=== PATIENT | female | born 1970 | race Caucasian/White ===

== ENCOUNTER 2022-09-14 17:51 | Emergency (ER) | payer MEDICARE, MEDICAID ==
[~2022-09-14 17:51] MED LIST: CEPH250S PO; LORA10TA7 PO
[2022-09-14 18:50] LABS: BASOPHILS % (AUTO) 0 % (0-10); EOSINOPHILS # (AUTO) 0.1 10^3/uL (0.0-0.3); EOSINOPHILS % (AUTO) 1 % (0-10); HEMATOCRIT 42 % (35-52); HEMOGLOBIN 13.9 g/dL (11.5-16.0); LYMPHOCYTES # (AUTO) 2.1 10^3/uL (1.0-4.0); LYMPHOCYTES % (AUTO) 26 % (12-44); MEAN CORPUSCULAR HEMOGLOBIN 30 pg (25-34); MEAN CORPUSCULAR HGB CONC 33 g/dL (32-36); MEAN CORPUSCULAR VOLUME 91 fL (80-99); MONOCYTES # (AUTO) 0.7 10^3/uL (0.0-1.0); MONOCYTES % (AUTO) 9 % (0-12); NEUTROPHILS # (AUTO) 5.3 10^3/uL (1.8-7.8); NEUTROPHILS % (AUTO) 64 % (42-75); PLATELET COUNT 269 10^3/uL (130-400); WHITE BLOOD COUNT 8.3 10^3/uL (4.3-11.0)
--- NOTE | 2022-09-14 18:50 | ED General ---
General Chief Complaint: General Problems/Pain Stated Complaint: WEAKNESS Nursing Triage Note: PT BROUGHT IN BY [facility] FROM HOME. PT HAS BEEN LAYING ON THE FLOOR FOR 3 DAYS. MOM STATES PT IS NORMALLY UP WALKING AROUND AND EATING. STATES THEY HAVE NOT BEEN ABLE TO GET HER OFF THE FLOOR OR EAT. PT WAS SEEN BY NORMA DUNNE AT HOME AND WAS GIVEN 1L OF IV FLUIDS. Source of Information: Family (mother) Exam Limitations: Physical Impairments History of Present Illness Date Seen by Provider: Sep 14, 2022 Time Seen by Provider: 18:30 Initial Comments Patient is a 52-year-old female who presents to the emergency department by EMS from home with her mother. She has a history of anoxic brain injury at and is quite intellectually disabled, nonverbal. She is able to walk and get around independently and feed herself. She sleeps on the floor at home and mother states that since Sunday she has not gotten up off the floor and has not really eaten much at all. She had a little food on Sunday, nothing yesterday and about 36 ounces of water today with a little mashed potatoes and a banana. She has not gotten up to toilet or otherwise been ambulatory in 2-1/2 days. One of the nurse practitioners from [facility] went over to the house and gave her some IV fluids and this did not result in any improvement in her behavior/ability to get up and move around. Mom reports no recent sick contacts. Everyone is fully vaccinated at home. She has not had any cough or shortness of breath or URI symptoms that mom can find. She reports no wounds. She is cared for at home by her elderly parents who are both in their 80s. They were unable to get her up off the floor today. They report no falls or injuries that they are aware of. She is not on any maintenance medications for any chronic health issues. Timing/Duration: 2-3 Days Severity: Moderate Allergies and Home Medications Allergies Coded Allergies: No Known Drug Allergies (Unverified , 04/14/12) Patient Home Medication List Home Medication List Reviewed: Yes Cephalexin Monohydrate (Keflex Susp) 250 Mg/5 Ml Susp, 2 TSP PO TID Prescribed by: IRAIS GARZA on 04/14/121947 Loratadine (Loratadine) 10 Mg Tablet, 10 MG PO DAILY, (Reported) Entered as Reported by: KUNAL PEDRAZA on 12/19/10 0937 Review of Systems Review of Systems Constitutional: see HPI unobtainable from patient due to chronic nonverbal state Past Mqrnkzy-Ideyhl-Awkmms Hx Patient Social History Tobacco Use?: No Use of E-Cig and/or Vaping dev: No Substance use?: No Alcohol Use?: No Pt feels they are or have been: No Physical Exam Vital Signs Vital Signs - First Documented 09/14/22 17:51 Temp 35.6 Pulse 91 Resp 16 B/P (MAP) 134/91 (105) Pulse Ox 96 O2 Delivery Room Air Capillary Refill : Height, Weight, BMI Height: 5'3" Weight: 155lbs. oz. 70.070759uk; BMI Method:Stated General Appearance: No Apparent Distress, WD/WN, Other (frowning) Eyes: Bilateral Eye Normal Inspection, Bilateral Eye PERRL, Bilateral Eye EOMI HEENT: PERRL/EOMI, Other (slightly dry oral mucosa) Neck: Supple Respiratory: Lungs Clear, Normal Breath Sounds, No Accessory Muscle Use, No Respiratory Distress Cardiovascular: Regular Rate, Rhythm (90's), Normal Peripheral Pulses Gastrointestinal: Soft, Guarding (patient voluntarily guards a little with palpation of the abdomen; nondistended. normal BS; ) Extremity: Normal Capillary Refill, Normal Inspection, No Pedal Edema Neurologic/Psychiatric: Alert (eyes open,. frowning - appears to move all extremities equally; ), Normal Mood/Affect Skin: Normal Color, Warm/Dry, Other (a few old bruises to left inner uper thigh) Progress/Results/Core Measures Suspected Sepsis SIRS Temperature: Pulse: 91 Respiratory Rate: 16 Laboratory Tests 09/14/22 17:56: White Blood Count 8.3 Blood Pressure 134 /91 Mean: 105 Laboratory Tests 09/14/22 17:56: Creatinine 0.61, Platelet Count 269, Total Bilirubin 0.4 Results/Orders Lab Results Laboratory Tests Test 09/14/22 17:56 09/14/22 18:59 Range/Units White Blood Count 8.3 4.3-11.0 10^3/uL Red Blood Count 4.67 3.80-5.11 10^6/uL Hemoglobin 13.9 11.5-16.0 g/dL Hematocrit 42 35-52 % Mean Corpuscular Volume 91 80-99 fL Mean Corpuscular Hemoglobin 30 25-34 pg Mean Corpuscular Hemoglobin Concent 33 32-36 g/dL Red Cell Distribution Width 14.2 10.0-14.5 % Platelet Count 269 130-400 10^3/uL Mean Platelet Volume 12.0 9.0-12.2 fL Immature Granulocyte % (Auto) 0 % Neutrophils (%) (Auto) 64 42-75 % Lymphocytes (%) (Auto) 26 12-44 % Monocytes (%) (Auto) 9 0-12 % Eosinophils (%) (Auto) 1 0-10 % Basophils (%) (Auto) 0 0-10 % Neutrophils # (Auto) 5.3 1.8-7.8 10^3/uL Lymphocytes # (Auto) 2.1 1.0-4.0 10^3/uL Monocytes # (Auto) 0.7 0.0-1.0 10^3/uL Eosinophils # (Auto) 0.1 0.0-0.3 10^3/uL Basophils # (Auto) 0.0 0.0-0.1 10^3/uL Immature Granulocyte # (Auto) 0.0 0.0-0.1 10^3/uL Sodium Level 138 135-145 MMOL/L Potassium Level 3.9 3.6-5.0 MMOL/L Chloride Level 105 98-107 MMOL/L Carbon Dioxide Level 24 21-32 MMOL/L Anion Gap 9 5-14 MMOL/L Blood Urea Nitrogen 8 7-18 MG/DL Creatinine 0.61 0.60-1.30 MG/DL Estimat Glomerular Filtration Rate 109 BUN/Creatinine Ratio 13 Glucose Level 102 70-105 MG/DL Calcium Level 8.9 8.5-10.1 MG/DL Corrected Calcium 9.2 8.5-10.1 MG/DL Total Bilirubin 0.4 0.1-1.0 MG/DL Aspartate Amino Transf (AST/SGOT) 20 5-34 U/L Alanine Aminotransferase (ALT/SGPT) 20 0-55 U/L Alkaline Phosphatase 103 40-136 U/L Total Protein 7.0 6.4-8.2 GM/DL Albumin 3.6 3.2-4.5 GM/DL Urine Color YELLOW Urine Clarity CLEAR Urine pH 6.0 5-9 Urine Specific [place] 1.020 1.016-1.022 Urine Protein NEGATIVE NEGATIVE Urine Glucose (UA) NEGATIVE NEGATIVE Urine Ketones 1+ H NEGATIVE Urine Nitrite NEGATIVE NEGATIVE Urine Bilirubin NEGATIVE NEGATIVE Urine Urobilinogen 0.2 < = 1.0 MG/DL Urine Leukocyte Esterase NEGATIVE NEGATIVE Urine RBC (Auto) 2+ H NEGATIVE Urine RBC 10-25 H /HPF Urine WBC NONE /HPF Urine Squamous Epithelial Cells 0-2 /HPF Urine Crystals NONE /LPF Urine Bacteria FEW H /HPF Urine Casts NONE /LPF Urine Mucus SMALL H /LPF Urine Culture Indicated YES My Orders Orders - KAIDEN ZELAYA MD Ed Iv/Invasive Line Start (09/14/22 18:45) Cbc With Automated Diff (09/14/22 18:45) Comprehensive Metabolic Panel (09/14/22 18:45) Ua Culture If Indicated (09/14/22 18:45) Urine Culture (09/14/22 18:59) Abdomen/Kub 1view (09/14/22 20:26) Vital Signs/I&O 09/14/22 17:51 Temp 35.6 Pulse 91 Resp 16 B/P (MAP) 134/91 (105) Pulse Ox 96 O2 Delivery Room Air Capillary Refill : Blood Pressure Mean: 105 Progress Note : Time: 20:39 Progress Note Patient reevaluated, labs have been reviewed with mom they are reassuring, no abnormalities were found. No evidence of urinary tract infection. Mom verbalizes some concern over potential constipation. Dorina does guard quite a bit with deep abdominal palpation. Mom states that at times she will go up to 10 days without a bowel movement. She keeps track of it in a daily calendar. Her last bowel movement was September 10. She does have some quiet bowel sounds. It is nondistended. No physical exam findings concerning for obstruction, CT scan considered but exam and history do not support the need. Will obtain a KUB. We will see if she will drink some Pedialyte. No concerning findings for which to admit her this evening. 2114 Patient has tolerated 3 cups of Pedialyte. She is much more perky and alert. We will get her up and attempt to ambulate her. If she is able to do this we will discharge her to home with mom. Departure Impression Primary Impression: Malaise and fatigue Disposition: HOME, SELF-CARE Condition: Improved Departure-Patient Inst. Decision time for Depature: 21:16 Referrals: JASON HUANG DO (PCP) Primary Care Physician NUNU GOMEZ DO (Family) Primary Care Physician Patient Instructions: Generalized Weakness Add. Discharge Instructions: Encourage fluids and food over the next 12 to 24 hours. Please call her primary care provider tomorrow for follow-up. Return to the emergency department if she develops a fever, vomiting or any other emergent, concerning symptoms. Copy Copies To 1: JASON HUANG KATHRYN M MD Sep 14, 2022 18:50
[2022-09-14 18:54] LABS: ALBUMIN 3.6 GM/DL (3.2-4.5)
[2022-09-14 18:55] LABS: POTASSIUM 3.9 MMOL/L (3.6-5.0)
[2022-09-14 18:56] LABS: CALCIUM 8.9 MG/DL (8.5-10.1)
[2022-09-14 18:59] LABS: BILIRUBIN,TOTAL 0.4 MG/DL (0.1-1.0)
[2022-09-14 19:01] LABS: CREATININE SERUM 0.61 MG/DL (0.60-1.30)
[2022-09-14 19:04] LABS: BILIRUBIN,URINE NEGATIVE (NEGATIVE); CLARITY,URINE CLEAR; COLOR,URINE YELLOW; GLUCOSE, URINE (UA) NEGATIVE (NEGATIVE); KETONES,URINE 1+ (NEGATIVE); LEUKOCYTE ESTERASE ,URINE NEGATIVE (NEGATIVE); NITRITE,URINE NEGATIVE (NEGATIVE); PROTEIN,URINE NEGATIVE (NEGATIVE)
[2022-09-14 19:17] LABS: BACTERIA,URINE FEW /HPF; SQUAMOUS EPITHELIAL CELL,UR 0-2 /HPF
--- NOTE | 2022-09-14 20:51 | Diagnostic Imaging Report ---
EXAMINATION: Abdomen 1 view HISTORY: Abdominal pain COMPARISON: None available. FINDINGS: There is a moderate amount of gas and stool throughout the colon. Nonobstructive bowel gas pattern. No radiopaque foreign body. The lung bases are clear. The osseous structures are intact. IMPRESSION: Moderate stool burden without other acute abnormality in the abdomen. Dictated by: Dictated on workstation # [id number]
[2022-09-14 21:19] VITALS: BP 149/91
== END 2022-09-14 21:27 | disposition home or self-care (01) ==
LOC: EDUNIT# 17:51 → ER 17:54
DX: R53.83 Other fatigue (principal); R53.81 Other malaise
CPT/HCPCS: 36415; 51701; 74018; 80053; 81000; 85025; 87088

== ENCOUNTER 2022-10-05 13:04 | Inpatient (IN) | payer MEDICARE, MEDICAID ==
[~2022-10-05] VITALS: Ht 160 cm; Wt 75.8 kg
[2022-10-05 15:44] VITALS: BP 109/54
[2022-10-05 16:46] LABS: BASOPHILS % (AUTO) 0 % (0-10); EOSINOPHILS # (AUTO) 0.2 10^3/uL (0.0-0.3); EOSINOPHILS % (AUTO) 2 % (0-10); HEMATOCRIT 44 % (35-52); HEMOGLOBIN 14.5 g/dL (11.5-16.0); LYMPHOCYTES # (AUTO) 2.6 10^3/uL (1.0-4.0); LYMPHOCYTES % (AUTO) 37 % (12-44); MEAN CORPUSCULAR HEMOGLOBIN 30 pg (25-34); MEAN CORPUSCULAR HGB CONC 33 g/dL (32-36); MEAN CORPUSCULAR VOLUME 91 fL (80-99); MONOCYTES # (AUTO) 0.6 10^3/uL (0.0-1.0); MONOCYTES % (AUTO) 8 % (0-12); NEUTROPHILS # (AUTO) 3.8 10^3/uL (1.8-7.8); NEUTROPHILS % (AUTO) 53 % (42-75); PLATELET COUNT 282 10^3/uL (130-400); WHITE BLOOD COUNT 7.1 10^3/uL (4.3-11.0)
--- NOTE | 2022-10-05 17:20 | History & Physical ---
ANITHA BEAR 10/05/22 1720: History of Present Illness History of Present Illness Reason for visit/HPI Ms. Yang is a 52 y/o female with no significant PMHx who presents as a direct admission to the Hospitalist service with general weakness/decline from baseline disposition. The patient has developmental disabilities and is cared for at home by her parents. The patient's mother, sister, and nurse are present at bedside during the encounter. The following report is from the patient's mother. On 09/12 the patient began exhibiting a change in behavior and began laying on the floor on the main level of their home. The patient's bedroom is upstairs, and prior to this date, the patient ambulated up and down the stairs and to the restroom with assistance. With no improvement in disposition, the patient was taken to the ED on 09/14/22 with no remarkable findings, however imaging studies of the patient's head were not conducted. The patient's family has not witnessed a fall or injury to the head or elsewhere. The patient has continued to stay on the main level of their home, not ambulating to her bedroom or bathroom. The patient has been wearing briefs as she has not gotten up to the bathroom for the past three weeks. The patient is stooling regularly and has had a BM each day for the past 4 days. There is no concern for urinary retention. The patient has been tolerating soft foods as the family is nervous to feed her solids as she will not sit up to eat. Prior to 09/12 the patient tolerated a regular diet. The patient's sister states she has noticed that the patient has been unsteady when sitting up. The patient has not had any recent changes in medications. The patient is currently taking Vitamin D3 5000 units PO qd and Zyrtec 10mg PO qd. ROS is unable to be obtained. The patient is alert and resting in bed during the encounter. Date of Admission Oct 05, 2022 at 16:25 Date Seen by a Provider: Oct 05, 2022 Time Seen by a Provider: 17:00 I consulted on this patient on 10/05/22 17:08 Attending Physician [facility] Admitting Physician Admitting Physician: Rudy Beck MD Attending Physician: Rudy Beck MD Consult Allergies and Home Medications Allergies Coded Allergies: No Known Drug Allergies (Unverified , 04/14/12) Patient Home Medication List Home Medication List Reviewed: Yes Cephalexin Monohydrate (Keflex Susp) 250 Mg/5 Ml Susp, 2 TSP PO TID Prescribed by: IRAIS GARZA on 04/14/121947 Loratadine (Loratadine) 10 Mg Tablet, 10 MG PO DAILY, (Reported) Entered as Reported by: KUNAL PEDRAZA on 12/19/10 0937 Past Wczqcpy-Wpysot-Rehhdm Hx Patient Social History Marrital Status: single Tobacco Use?: No Substance use?: No Alcohol Use?: No Immunizations Up To Date Date of Influenza Vaccine: Jun 19, 2022 Tetanus Booster (TDap): Unknown Current Status Primary Language: Frisian Past Medical History Surgeries: Hysterectomy Family Medical History Heart Disease (atrial fibrillation - mother and father), Renal Disease (mother) Review of Systems ROS-Unable to Obtain: Unable to obtain Physical Exam Vital Signs Vital Signs - First Documented 10/05/22 15:44 Temp 36.4 Pulse 88 Resp 20 B/P (MAP) 109/54 (72) Pulse Ox 92 O2 Delivery Room Air Capillary Refill : Height, Weight, BMI Height: 5'3" Weight: 155lbs. oz. 70.605796uv; BMI Method:Stated General Appearance: No Apparent Distress, WD/WN Respiratory: Normal Breath Sounds, No Accessory Muscle Use, No Respiratory Distress, Other (mildly coarse breath sounds bilaterally) Cardiovascular: Regular Rate, Rhythm, No Edema, No Murmur Gastrointestinal: Normal Bowel Sounds, Non Tender, Soft Extremity: No Pedal Edema Neurologic/Psychiatric: Alert Skin: Normal Color, Warm/Dry Assessment/Plan Assessment and Plan Problems: (1) Malaise and fatigue Status: Acute Assessment & Plan: 10/05: General malaise, decline from baseline disposition. Differential includes stroke/CVA, unknown injury to head, early onset dementia, AMS d/t underlying infectious etiology -CBC, CMP, TSH, ProCalcitonin, UA -MRI of head to rule-out injury or stroke -PT/OT to assess for deficits potentially CVA-related and to improve strength/stability -Bedside swallow study - regular diet/soft foods if patient is able to tolerate Admission Diagnosis Admission Status: Observation RUDY BECK MD 10/05/22 4470: Allergies and Home Medications Allergies Coded Allergies: No Known Drug Allergies (Unverified , 04/14/12) Patient Home Medication List Home Medication List Reviewed: Yes Cephalexin Monohydrate (Keflex Susp) 250 Mg/5 Ml Susp, 2 TSP PO TID Prescribed by: IRAIS GARZA on 04/14/121947 Loratadine (Loratadine) 10 Mg Tablet, 10 MG PO DAILY, (Reported) Entered as Reported by: KUNAL PEDRAZA on 12/19/10 0937 Past Vcnfgoc-Ymrdhu-Imkkvy Hx Patient Social History Living Status: Lives at home with parents, previously independent with ADLs Review of Systems Constitutional: other (Mostly non verbal) Physical Exam General Appearance: No Apparent Distress, WD/WN, Other (Non verbal adult female, NAD) HEENT: PERRL/EOMI Neck: Full Range of Motion, Non Tender, Supple Respiratory: Chest Non Tender, Lungs Clear, Normal Breath Sounds, No Accessory Muscle Use, No Respiratory Distress Cardiovascular: Regular Rate, Rhythm, No Edema, No Murmur Gastrointestinal: Normal Bowel Sounds, Non Tender, Soft; No Distended, No Guarding Back: No CVA Tenderness, No Vertebral Tenderness Extremity: Normal Capillary Refill, Normal Range of Motion, Non Tender, No Calf Tenderness, No Pedal Edema Neurologic/Psychiatric: Alert, Normal Mood/Affect, Other (moving all extremities) Skin: Normal Color, Warm/Dry Lymphatic: No Adenopathy Assessment/Plan Admission Diagnosis Admission Status: Observation Supervisory-Addendum Brief Verification & Attestation Participated in pt care: history, physical Personally performed: exam, history Care discussed with: Medical Student Procedures: n/a Verification and Attestation of Medical Student E/M Service A medical student performed and documented this service in my presence. I reviewed and verified all information documented by the medical student and made modifications to such information, when appropriate. I personally performed the physical exam and medical decision making. Rudy Beck, Oct 05, 2022,18:39 Altered Mental status h/o Anoxic brain injury at Non ambulatory previously walking Non Verbal - Reviewed ER labs from previous visit, labs today normal - MRI pending in AM - PT ordered for adilson BEARANITHA Oct 05, 2022 17:20 URDY BECK MD Oct 05, 2022 18:41
[2022-10-05] MEDS: ENOXAPARIN 40 MG/0.4 ML (LOVENOX) SYR SC SCH (17:45)
[2022-10-05] MEDS: NS IV 1000 ML 1,000 ML IV SCH (17:45)
[2022-10-05 19:12] VITALS: BP 132/80
[2022-10-06 00:06] VITALS: BP 113/70
[2022-10-06] MEDS: NS IV 1000 ML 1,000 ML IV SCH ×3 (02:26→22:29)
[2022-10-06 03:44] VITALS: BP 134/69
[2022-10-06 06:01] LABS: ALBUMIN 2.7 GM/DL (3.2-4.5); BILIRUBIN,TOTAL 0.4 MG/DL (0.1-1.0); CALCIUM 8.2 MG/DL (8.5-10.1); CREATININE SERUM 0.57 MG/DL (0.60-1.30); POTASSIUM 3.6 MMOL/L (3.6-5.0); TOTAL PROTEIN 5.3 GM/DL (6.4-8.2)
[2022-10-06 08:26] VITALS: BP 149/85
[2022-10-06] MEDS ORDERED: LORazepam INJ 2 MG/ML (ATIVAN) VIAL IVP ONE (09:00)
[2022-10-06] MEDS ORDERED: CATHETER FLUSH 10 ML SYR IVP PRN (09:15)
[2022-10-06] MEDS ORDERED: CALC-250 PO (09:43)
[2022-10-06] MEDS ORDERED: CETI10TA49 PO (09:43)
[2022-10-06] MEDS ORDERED: LORazepam INJ 2 MG/ML (ATIVAN) VIAL IVP NR (10:30)
--- NOTE | 2022-10-06 11:51 | Diagnostic Imaging Report ---
Clinical indications: Patient is mentally challenged. Patient has increased mental status changes. Exam: MRI of the brain performed without IV contrast. Sequences include axial DWI, ADC map, axial T1, axial T2, axial FLAIR, coronal gradient echo, and sagittal T1. Comparison: None. Findings: Patient is rotated on the sagittal T1 sequence which limits evaluation of midline structures. There is no evidence of acute cerebral infarct, intracranial hemorrhage, or gross mass effect. The brain parenchymal volume appears appropriate for patient's age. There are a few focal areas of high T2 signal white matter changes involving both cerebral hemispheres, centrum semiovale regions mild confluent high T2 signal involving the periventricular regions. There is normal trujillo-white matter distinction. There is no significant midline shift or herniation. The sleetm[place] of [place] vascular structures show no gross abnormality as visualized. There is no evidence of hydrocephalus. The basal cisterns are unremarkable. The skull, extracranial soft tissue, and orbits are unremarkable. The paranasal sinuses are unremarkable. Temporal bones show no significant abnormality. IMPRESSION: 1: There is motion artifact slightly rotated images which limits evaluation anatomical detail. 2: There is no evidence of acute intracranial process. 3: There is a minimal amount of high T2 signal white matter changes involving both cerebral hemispheres which may be related to chronic small vessel ischemic disease. Dictated by: Dictated on workstation # [id number]
[2022-10-06 12:06] VITALS: BP 143/76
--- NOTE | 2022-10-06 13:13 | Physical Therapy Progress Note ---
Therapy Progress Note PT attempted to assess patient, however, patient is extremely lethargic due to medication issued prior to MRI. PT will attempt later today or a.m. Family present. RN notified. TERRIE BALL PT Oct 06, 2022 13:12
--- NOTE | 2022-10-06 13:40 | Occ Therapy Progress Note ---
Therapy Progress Note OT orders received and chart reviewed. Pt is extremely lethargic due to medications issued prior to MRI. OT will attempt evaluation next available date. LUCIO WING OT Oct 06, 2022 13:40
--- NOTE | 2022-10-06 14:09 | Physical Therapy Evaluation ---
PT Evaluation-General Medical Diagnosis Admission Date Oct 05, 2022 at 16:25 Medical Diagnosis: generalized weakness/AMS Onset Date: Oct 05, 2022 Therapy Diagnosis Therapy Diagnosis: debility/weakness Height/Weight Height (Feet): 5 Height (Inches): 3 Weight (Pounds): 155 Precautions Precautions/Isolations: Standard Precautions Referral Physician: Jacque Reason for Referral: Evaluation/Treatment Medical History Additional Medical History developmental delay Current History ER secondary to decrease in status/inability to ambulate Reviewed History: Yes Social History Home: [facility] Current Living Status: Other Family Entry Into Home: Stairs With Railing PT Steps Into Home: 4 Prior Prior Level of Function SCALE: Activities may be completed with or without assistive devices. 6-Lhpdahukig-myukxsi completes the activity by him/herself with no assistance from a helper. 5-Set-up or Clean-up Assistance-helper sets up or cleans up; patient completes activity. Turney assists only prior to or following the activity. 4-Supervision or Touching Assistance-helper provides verbal cues and/or touching/steadying and/or contact guard assistance as patient completes activity. Assistance may be provided throughout the activity or intermittently. 3-Partial/Moderate Assistance-helper does LESS THAN HALF the effort. Turney lifts, holds or supports trunk or limbs, but provides less than half the effort. 2-Substantial/Maximal Assistance-helper does MORE THAN HALF the effort. Turney lifts or holds trunk or limbs and provides more than half the effort. 5-Txltdkxse-qxmrgz does ALL the effort. Patient does none of the effort to complete the activity. Or, the assistance of 2 or more helpers is required for the patient to complete the activity. If activity was not attempted, code reason: 7-Patient Refused. 9-Not Applicable-not attempted and the patient did not perform the activity before the current illness, exacerbation or injury. 10-Not Attempted due to Environmental Limitations-(lack of equipment, weather restraints, etc.). 88-Not Attempted due to Medical Conditions or Safety Concerns. Bed Mobility: 6 Transfers (B,C,W/C): 6 Gait: 6 Stairs: 3 Indoor Mobility (Ambulation): Independent Stairs: Needed Some Help Prior Devices Use: None PT Evaluation-Current Subjective Patient is non verbal. Father agrees to PT. Patient is more alert at this ti me. Objective Patient Orientation: MR ROM/Strength ROM Lower Extremities bilateral LE WFL Strength Lower Extremities 3-/5 grossly bilateral LE (no formal testing) Integumentary/Posture Bladder Incontinence: No Posture WFL Neuromuscular (Tone, Coordination, Reflexes) diminished coordination due to weakness Sensory Vision: Unable to Assess Hearing: Functional Transfers Roll Left to Right (QC): 2 Sit to Lying (QC): 2 Lying to Sitting/Side of Bed(Q: 2 Gait Does the Patient Walk?: No and Walking Goal IS indicated Mode of Locomotion: Walk Walk 10 feet (QC): 2 (sidestepping) Balance Sitting Static: Fair Sitting Dynamic: Fair Standing Static: Poor Standing Dynamic: Poor Assessment/Needs Patient will benefit from skilled PT to address functional strength and mobility to improve current LOF to safely return to home with family at maximum LOF. Rehab Potential: Guarded PT [facility] Goals Business Process Manager Goals PT [facility] Goals Time Frame: Oct 14, 2022 Roll Left & Right (QC): 4 Sit to Lying (QC): 4 Lying-Sitting on Side/Bed(QC): 4 Sit to Stand (QC): 4 Chair/Cgz-ah-Fylxe Xfer(QC): 4 Toilet Transfer (QC): 4 Walk 10 feet (QC): 4 Walk 50ft with 2 Turns (QC): 4 PT Plan Problem List Problem List: Activity Tolerance, Functional Strength, Safety, Balance, Gait, Transfer, Bed Mobility Treatment/Plan Treatment Plan: Continue Plan of Care Treatment Plan: Bed Mobility, Education, Functional Activity Juli, Functional Strength, Gait, Safety, Therapeutic Exercise, Transfers Treatment Duration: Oct 14, 2022 Frequency: 5 times per week Estimated Hrs Per Day: .25 hour per day Patient and/or Family Agrees t: Yes Time Time In: 1350 Time Out: 1402 DATE: Oct 06, 2022 Total Billed Treatment Time: 12 Total Billed Treatment 1 visit [facility] 12 min TERRIE BALL PT Oct 06, 2022 14:09
--- NOTE | 2022-10-06 14:12 | Progress Note ---
SHELLIE ARANA I 10/06/22 1412: Subjective Date Seen by a Provider: Oct 06, 2022 Time Seen by a Provider: 11:00 Subjective/Events-last exam Information gathered from father, who reports that she seems to be moving around in bed better today. She has not ambulated today, but has voided. Mental status is presumed close to baseline. Her father still feels like "her equilibrium is off." Objective Exam Last Set of Vital Signs Vital Signs Date Time Temp Pulse Resp B/P (MAP) Pulse Ox O2 Delivery O2 Flow Rate FiO2 10/06/22 12:06 37.3 90 17 143/76 (98) 95 Room Air Capillary Refill : I&O Intake and Output 10/06/22 00:00 Intake Total 550 ml Balance 550 ml Intake Oral 550 ml # Voids 3 Daily Weight Change No General: Alert (Non verbal, tracks with eyes. Well nourished ), Cooperative HEENT: Atraumatic, PERRLA Neck: Supple, No JVD, No Thyromegaly Lungs: Clear to Auscultation, Normal Air Movement Heart: Regular Rate, Normal S1, Normal S2, No Murmurs Abdomen: Normal Bowel Sounds, Soft, No Tenderness, No Hepatosplenomegaly, No Masses Extremities: No Clubbing, No Cyanosis, Other Skin: No Rashes, No Breakdown, No Significant Lesion Results Lab Laboratory Tests 10/05/22 16:38: White Blood Count 7.1, Red Blood Count 4.84, Hemoglobin 14.5, Hematocrit 44, Mean Corpuscular Volume 91, Mean Corpuscular Hemoglobin 30, Mean Corpuscular Hemoglobin Concent 33, Red Cell Distribution Width 13.7, Platelet Count 282, Mean Platelet Volume 11.0, Immature Granulocyte % (Auto) 0, Neutrophils (%) (Aut o) 53, Lymphocytes (%) (Auto) 37, Monocytes (%) (Auto) 8, Eosinophils (%) (Auto) 2, Basophils (%) (Auto) 0, Neutrophils # (Auto) 3.8, Lymphocytes # (Auto) 2.6, Monocytes # (Auto) 0.6, Eosinophils # (Auto) 0.2, Basophils # (Auto) 0.0, Immature Granulocyte # (Auto) 0.0, Procalcitonin 0.02, Thyroid Stimulating Hormone (TSH) 1.50 10/06/22 05:20: Sodium Level 137, Potassium Level 3.6, Chloride Level 108H, Carbon Dioxide Level 22, Anion Gap 7, Blood Urea Nitrogen 9, Creatinine 0.57L, Estimat Glomerular Filtration Rate 111, BUN/Creatinine Ratio 16, Glucose Level 86, Calcium Level 8.2L, Corrected Calcium 9.2, Total Bilirubin 0.4, Aspartate Amino Transf (AST/SGOT) 16, Alanine Aminotransferase (ALT/SGPT) 18, Alkaline Phosphatase 93, Total Protein 5.3L, Albumin 2.7L Assessment/Plan Assessment/Plan Assess & Plan/Chief Complaint Generalized weakness - 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 - MRI showing: possible small vessel ischemic damage - Working with PT - Consider for acute rehab SARAH MALIK DO 10/07/22 0548: Supervisory-Addendum Brief Verification & Attestation Participated in pt care: history, MDM, physical Personally performed: exam, history, MDM, supervision of care Care discussed with: Medical Student Procedures: n/a Results interpretation: Verified all documentation Verification and Attestation of Medical Student E/M Service A medical student performed and documented this service in my presence. I reviewed and verified all information documented by the medical student and made modifications to such information, when appropriate. I personally performed the physical exam and medical decision making. Sarah Malik, Oct 07, 2022,05:48 SHELLIE ARANA I Oct 06, 2022 14:12 SARAH MALIK DO Oct 07, 2022 05:48
[2022-10-06 15:55] VITALS: BP 125/83
[2022-10-06] MEDS: ENOXAPARIN 40 MG/0.4 ML (LOVENOX) SYR SC SCH (16:56)
[2022-10-06 19:33] VITALS: BP 123/81
[2022-10-07 00:06] VITALS: BP 130/85
[2022-10-07 04:27] VITALS: BP 155/96
[2022-10-07 06:28] LABS: BASOPHILS % (AUTO) 1 % (0-10); EOSINOPHILS # (AUTO) 0.1 10^3/uL (0.0-0.3); EOSINOPHILS % (AUTO) 1 % (0-10); HEMATOCRIT 41 % (35-52); HEMOGLOBIN 13.6 g/dL (11.5-16.0); LYMPHOCYTES # (AUTO) 1.5 10^3/uL (1.0-4.0); LYMPHOCYTES % (AUTO) 23 % (12-44); MEAN CORPUSCULAR HEMOGLOBIN 30 pg (25-34); MEAN CORPUSCULAR HGB CONC 33 g/dL (32-36); MEAN CORPUSCULAR VOLUME 89 fL (80-99); MEAN PLATELET VOLUME 11.3 fL (9.0-12.2); MONOCYTES # (AUTO) 0.3 10^3/uL (0.0-1.0); MONOCYTES % (AUTO) 4 % (0-12); NEUTROPHILS # (AUTO) 4.5 10^3/uL (1.8-7.8); NEUTROPHILS % (AUTO) 71 % (42-75); PLATELET COUNT 248 10^3/uL (130-400); WHITE BLOOD COUNT 6.4 10^3/uL (4.3-11.0)
[2022-10-07 06:49] LABS: ALBUMIN 3.1 GM/DL (3.2-4.5); BILIRUBIN,TOTAL 0.4 MG/DL (0.1-1.0); CALCIUM 8.9 MG/DL (8.5-10.1); CREATININE SERUM 0.5 MG/DL (0.60-1.30); POTASSIUM 3.4 MMOL/L (3.6-5.0); TOTAL PROTEIN 6.4 GM/DL (6.4-8.2)
--- NOTE | 2022-10-07 06:53 | Progress Note ---
Subjective Date Seen by a Provider: Oct 07, 2022 Time Seen by a Provider: 11:00 Subjective/Events-last exam Doing well Tachycardia noted at 128 EKG revealed sinus tachycardia IVF maintained so no signs of dehydration Low dose Metoprolol ordered Updated father at bedside PT OT ordered Review of Systems Neurological: Confusion Objective Exam Last Set of Vital Signs Vital Signs Date Time Temp Pulse Resp B/P (MAP) Pulse Ox O2 Delivery O2 Flow Rate FiO2 10/07/22 04:27 36.5 97 16 155/96 (115) 97 Room Air Capillary Refill : I&O Intake and Output 10/07/22 00:00 Intake Total 2320 ml Output Total 705 ml Balance 1615 ml Intake Oral 1320 ml IV Total 1000 ml Output Urine Total 705 ml # Urine Diapers 2 # Emeses 1 General: Alert Lungs: Clear to Auscultation Heart: Regular Rate Results Lab Laboratory Tests 10/07/22 06:15: White Blood Count 6.4, Red Blood Count 4.58, Hemoglobin 13.6, Hematocrit 41, Mean Corpuscular Volume 89, Mean Corpuscular Hemoglobin 30, Mean Corpuscular Hemoglobin Concent 33, Red Cell Distribution Width 13.4, Platelet Count 248, Mean Platelet Volume 11.3, Immature Granulocyte % (Auto) 0, Neutrophils (%) (Auto) 71, Lymphocytes (%) (Auto) 23, Monocytes (%) (Auto) 4, Eosinophils (%) (Auto) 1, Basophils (%) (Auto) 1, Neutrophils # (Auto) 4.5, Lymphocytes # (Auto) 1.5, Monocytes # (Auto) 0.3, Eosinophils # (Auto) 0.1, Basophils # (Auto) 0.0, Immature Granulocyte # (Auto) 0.0, Sodium Level 134L, Potassium Level 3.4L, Chloride Level 104, Carbon Dioxide Level 20L, Anion Gap 10, Blood Urea Nitrogen 4L, Creatinine 0.50L, Estimat Glomerular Filtration Rate 114, BUN/Creatinine Ratio 8, Glucose Level 96, Calcium Level 8.9, Corrected Calcium 9.6, Total Bilirubin 0.4, Aspartate Amino Transf (AST/SGOT) 17, Alanine Aminotransferase (ALT/SGPT) 20, Alkaline Phosphatase 108, Total Protein 6.4, Albumin 3.1L Assessment/Plan Assessment/Plan Assess & Plan/Chief Complaint Assessment: Encephalopathy Anoxic brain injury from Sinus tachycardia without signs of symptoms Non-verbal- chronic Plan: Supportive care PT OT IVF Metoprolol TRIXIE MALIK DO Oct 07, 2022 06:53
[2022-10-07 07:15] VITALS: BP 126/73
[2022-10-07] MEDS: NS IV 1000 ML 1,000 ML IV SCH ×2 (08:41→18:11)
[2022-10-07 11:44] VITALS: BP 114/68
[2022-10-07] MEDS: meTOprolol TARTRATE 25 MG (LOPRESSOR) TABLET PO SCH ×2 (12:31→21:02)
[2022-10-07] MEDS: ENOXAPARIN 40 MG/0.4 ML (LOVENOX) SYR SC SCH (15:23)
[2022-10-07 15:24] VITALS: BP_SYST 100; BP_SYST 132; BP_DIAS 52; BP_DIAS 63
[2022-10-07 19:32] VITALS: BP 128/60
[2022-10-08] VITALS (7 sets, daily range): BP systolic 113–144; BP diastolic 57–98
[2022-10-08] MEDS: NS IV 1000 ML 1,000 ML IV SCH ×2 (04:48→14:44)
[2022-10-08 06:48] LABS: BASOPHILS % (AUTO) 1 % (0-10); EOSINOPHILS # (AUTO) 0.1 10^3/uL (0.0-0.3); EOSINOPHILS % (AUTO) 1 % (0-10); HEMATOCRIT 41 % (35-52); HEMOGLOBIN 13.5 g/dL (11.5-16.0); LYMPHOCYTES # (AUTO) 1.5 10^3/uL (1.0-4.0); LYMPHOCYTES % (AUTO) 27 % (12-44); MEAN CORPUSCULAR HEMOGLOBIN 30 pg (25-34); MEAN CORPUSCULAR HGB CONC 33 g/dL (32-36); MEAN CORPUSCULAR VOLUME 89 fL (80-99); MEAN PLATELET VOLUME 11.7 fL (9.0-12.2); MONOCYTES # (AUTO) 0.5 10^3/uL (0.0-1.0); MONOCYTES % (AUTO) 8 % (0-12); NEUTROPHILS # (AUTO) 3.5 10^3/uL (1.8-7.8); NEUTROPHILS % (AUTO) 63 % (42-75); PLATELET COUNT 259 10^3/uL (130-400); WHITE BLOOD COUNT 5.6 10^3/uL (4.3-11.0)
[2022-10-08 07:19] LABS: ALBUMIN 3.1 GM/DL (3.2-4.5); BILIRUBIN,TOTAL 0.5 MG/DL (0.1-1.0); CALCIUM 8.8 MG/DL (8.5-10.1); CREATININE SERUM 0.52 MG/DL (0.60-1.30); POTASSIUM 3.1 MMOL/L (3.6-5.0); TOTAL PROTEIN 6.3 GM/DL (6.4-8.2)
--- NOTE | 2022-10-08 08:01 | Progress Note ---
Subjective Date Seen by a Provider: Oct 08, 2022 Time Seen by a Provider: 11:00 Subjective/Events-last exam Patient doing about the same Emesis yesterday Labs remained stable Supportive care will continue Objective Exam Last Set of Vital Signs Vital Signs Date Time Temp Pulse Resp B/P (MAP) Pulse Ox O2 Delivery O2 Flow Rate FiO2 10/08/22 07:51 37.2 95 18 143/92 (109) 96 Room Air Capillary Refill : I&O Intake and Output 10/08/22 00:00 Intake Total 910 ml Output Total 200 ml Balance 710 ml Intake Oral 910 ml Output Urine Total 200 ml # Voids 6 # Bowel Movements 1 General: Alert Lungs: Clear to Auscultation Heart: Regular Rate Other physical findings Nonverbal Results Lab Laboratory Tests 10/08/22 05:58: White Blood Count 5.6, Red Blood Count 4.55, Hemoglobin 13.5, Hematocrit 41, Mean Corpuscular Volume 89, Mean Corpuscular Hemoglobin 30, Mean Corpuscular Hemoglobin Concent 33, Red Cell Distribution Width 13.4, Platelet Count 259, Mean Platelet Volume 11.7, Immature Granulocyte % (Auto) 0, Neutrophils (%) (Auto) 63, Lymphocytes (%) (Auto) 27, Monocytes (%) (Auto) 8, Eosinophils (%) (Auto) 1, Basophils (%) (Auto) 1, Neutrophils # (Auto) 3.5, Lymphocytes # (Auto) 1.5, Monocytes # (Auto) 0.5, Eosinophils # (Auto) 0.1, Basophils # (Auto) 0.0, Immature Granulocyte # (Auto) 0.0, Sodium Level 137, Potassium Level 3.1L, Chloride Level 104, Carbon Dioxide Level 21, Anion Gap 12, Blood Urea Nitrogen 3L, Creatinine 0.52L, Estimat Glomerular Filtration Rate 113, BUN/Creatinine Ratio 6, Glucose Level 72, Calcium Level 8.8, Corrected Calcium 9.5, Total Bilirubin 0.5, Aspartate Amino Transf (AST/SGOT) 21, Alanine Aminotransferase (ALT/SGPT) 21, Alkaline Phosphatase 115, Total Protein 6.3L, Albumin 3.1L Assessment/Plan Assessment/Plan Assess & Plan/Chief Complaint Assessment: Encephalopathy Anoxic brain injury from Sinus tachycardia without signs of symptoms Non-verbal- chronic Hypokalemia Plan: Supportive care PT OT IVF Metoprolol TRIXIE MALIK DO Oct 08, 2022 08:01
[2022-10-08] MEDS: KCL 20 MEQ TAB (K-DUR) PO SCH (09:23)
[2022-10-08] MEDS: meTOprolol TARTRATE 25 MG (LOPRESSOR) TABLET PO SCH ×2 (09:23→20:31)
[2022-10-08] MEDS: ENOXAPARIN 40 MG/0.4 ML (LOVENOX) SYR SC SCH (14:44)
[2022-10-09] MEDS: NS IV 1000 ML 1,000 ML IV SCH ×2 (01:05→08:35)
[2022-10-09 04:19] VITALS: BP 122/85
[2022-10-09] MEDS: KCL 20 MEQ TAB (K-DUR) PO SCH (06:06)
[2022-10-09 06:33] LABS: BASOPHILS % (AUTO) 1 % (0-10); EOSINOPHILS # (AUTO) 0.2 10^3/uL (0.0-0.3); EOSINOPHILS % (AUTO) 3 % (0-10); HEMATOCRIT 40 % (35-52); HEMOGLOBIN 13.1 g/dL (11.5-16.0); LYMPHOCYTES # (AUTO) 2.8 10^3/uL (1.0-4.0); LYMPHOCYTES % (AUTO) 46 % (12-44); MEAN CORPUSCULAR HEMOGLOBIN 30 pg (25-34); MEAN CORPUSCULAR HGB CONC 33 g/dL (32-36); MEAN CORPUSCULAR VOLUME 91 fL (80-99); MEAN PLATELET VOLUME 10.7 fL (9.0-12.2); MONOCYTES # (AUTO) 0.7 10^3/uL (0.0-1.0); MONOCYTES % (AUTO) 12 % (0-12); NEUTROPHILS # (AUTO) 2.4 10^3/uL (1.8-7.8); NEUTROPHILS % (AUTO) 39 % (42-75); PLATELET COUNT 246 10^3/uL (130-400); WHITE BLOOD COUNT 6.1 10^3/uL (4.3-11.0)
[2022-10-09 06:57] LABS: ALBUMIN 2.8 GM/DL (3.2-4.5); BILIRUBIN,TOTAL 0.4 MG/DL (0.1-1.0); CALCIUM 8.6 MG/DL (8.5-10.1); CREATININE SERUM 0.54 MG/DL (0.60-1.30); POTASSIUM 3.2 MMOL/L (3.6-5.0); TOTAL PROTEIN 5.7 GM/DL (6.4-8.2)
[2022-10-09 07:05] VITALS: BP 135/77
[2022-10-09] MEDS ORDERED: MAGNESIUM 1 GM/100 ML IVPB 100 ML IV ONE (07:15)
[2022-10-09] MEDS: POTASSIUM CL 10MEQ/50ML IVPB 50 ML IV SCH ×4 (08:21→08:34)
[2022-10-09] MEDS: meTOprolol TARTRATE 25 MG (LOPRESSOR) TABLET PO SCH ×2 (08:26→20:57)
--- NOTE | 2022-10-09 09:51 | Occupational Therapy Eval ---
OT Evaluation-General/PLF Medical Diagnosis Admission Date Oct 05, 2022 at 16:25 Medical Diagnosis: generalized weakness/AMS Onset Date: Oct 05, 2022 Therapy Diagnosis Therapy Diagnosis: Requires assistance for self care, weakness Height/Weight Height (Feet): 5 Height (Inches): 3 Weight (Pounds): 155 Precautions Precautions/Isolations: Standard Precautions Weight Bear Status Weight Bearing Restriction: Weight Bearing/Tolerated Referral Physician: Jacque Referral Reason: Evaluation/Treatment Medical History Additional Medical History developmental and mental delays, nonverbal Current History Per father, patient came down stairs one morning and laid on the sofa and wouldn't get up. Patient is cared for at home by parents, does not use AD for ambulation, required assist for all ADLS Reviewed History: Yes Social History Home: Multilevel Current Living Status: Other Family Entry Into Home: Stairs With Railing Steps Into Home: 4 Steps Inside Home: 13 (Bedroom is upstairs) ADL-Prior Level of Function SCALE: Activities may be completed with or without assistive devices. 5-Cbjxcuiyof-zfuzxeg completes the activity by him/herself with no assistance from a helper. 5-Set-up or Clean-up Assistance-helper sets up or cleans up; patient completes activity. [place] assists only prior to or following the activity. 4-Supervision or Touching Assistance-helper provides verbal cues and/or touching/steadying and/or contact guard assistance as patient completes activity. Assistance may be provided throughout the activity or intermittently. 3-Partial/Moderate Assistance-helper does LESS THAN HALF the effort. [place] lifts, holds or supports trunk or limbs, but provides less than half the effort. 2-Substantial/Maximal Assistance-helper does MORE THAN HALF the effort. [place] lifts or holds trunk or limbs and provides more than half the effort. 2-Rmrqnritq-huhoqr does ALL the effort. Patient does none of the effort to complete the activity. Or, the assistance of 2 or more helpers is required for the patient to complete the activity. If activity was not attempted, code reason: 7-Patient Refused. 9-Not Applicable-not attempted and the patient did not perform the activity before the current illness, exacerbation or injury. 10-Not Attempted due to Environmental Limitations-(lack of equipment, weather restraints, etc.). 88-Not Attempted due to Medical Conditions or Safety Concerns. Self Care: Needed Some Help Functional Cognition: Dependent Drive Self: No OT Current Status Subjective Patient laying in bed w/ father present and food tray over bed. Father feeding patient however patient not swallowing food unless prompted Mental Status/Objective Patient Orientation: MR, Non-Verbal/Aphasic, Eyes Open Attachments: IV Current Upper Extremity ROM WFLS Upper Extremity Coordination BUE GMC/FMC impaired. Places juice cup on tray with slow responses and delayed motor planning Upper Extremity Strength not formally tested, observed with transfers and eating -4/5 ADL-Treatment ADL-Current Brushing front of hair, washing face and eating breakfast Eating (QC): 4 (pancake, juice and applesauce hand over hand assist) Oral Hygiene (QC): 4 Education OT Patient Education: Correct positioning, Instructions to caregiver, Modified ADL techniques, Progress toward Goal/Update tx plan, Purpose of tx/functional activities, Rehab process, Safety issues, Transfer techniques Teaching Recipient: Patient, Family Teaching Methods: Demonstration, Discussion Response to Teaching: Verbalize Understanding, Return Demonstration, Reinforcement Needed OT Long-Term Goals Long-Term Goals Time Frame: Oct 14, 2022 Eating (QC): 5 Oral Hygiene (QC): 5 Toileting Hygiene (QC): 4 Shower/Bathe Self (QC): 4 Upper Body Dressing (QC): 4 Lower Body Dressing (QC): 4 On/Off Footwear (QC): 4 Additional Goals: 1-Demonstrate ADL Tasks, 3-ImproveStrength/Juli 1=Demonstrate adherence to instructed precautions during ADL tasks. 2=Patient will verbalize/demonstrate understanding of assistive devices/modifications for ADL. 3=Patient will improve strength/tolerance for activity to enable patient to perform ADL's. OT Education/Plan Problem List/Assessment Assessment: Decreased Activ Tolerance, Decreased Safety Aware, Decreased UE Strength, Impaired Cognition, Impaired Coordination, Impaired Funct Balance, Impaired Self-Care Skills Discharge Recommendations Plan/Recommendations: Continue POC Therapy Discharge Recommendati: 24 Hour Supervision, Home & Family Treatment Plan/Plan of Care Treatment,Training & Education: Yes Patient would benefit from OT for education, treatment and training to promote independence in ADL's, mobility, safety and/or upper extremity function for ADL's. Plan of Care: ADL Retraining, Functional Mobility, Group Exercise/Act as Ind, UE Funct Exercise/Act Comment Patietn transferred to chair from bed, w/ min Assist and no ADS, in reclner chair upright w/ father present and mother on video phone call, breakfast tray table in font of patient, Treatment Duration: Oct 14, 2022 Frequency: 3 times per week (3-5 times per week) Estimated Hrs Per Day: .25 hour per day Agreement: Yes Rehab Potential: Good Time Start Time: 09:27 Stop Time: 09:44 DATE: Oct 09, 2022 Total Time Billed (hr/min): 17 Billed Treatment Time 1 EVL 17m CARLITA SANCHEZ OT Oct 09, 2022 09:51
[2022-10-09 10:37] LABS: BILIRUBIN,URINE NEGATIVE (NEGATIVE); CLARITY,URINE CLEAR; COLOR,URINE YELLOW; GLUCOSE, URINE (UA) NEGATIVE (NEGATIVE); KETONES,URINE TRACE (NEGATIVE); LEUKOCYTE ESTERASE ,URINE NEGATIVE (NEGATIVE); NITRITE,URINE NEGATIVE (NEGATIVE); PROTEIN,URINE NEGATIVE (NEGATIVE)
[2022-10-09 10:49] LABS: AMORPHOUS SEDIMENT,UR FEW AMOR URATES /LPF; BACTERIA,URINE TRACE /HPF; WBC,URINE 0-2 /HPF
[2022-10-09] MEDS ORDERED: KCL 20 MEQ TAB (K-DUR) PO NR (11:00)
[2022-10-09 11:17] VITALS: BP 134/60
--- NOTE | 2022-10-09 11:27 | Physical Therapy Progress Note ---
Therapy Progress Note Patient ambulating in hallway with nursing staff. PT will monitor patient progress. No treatment rendered. 1 visit TERRIE BALL PT Oct 09, 2022 11:27
--- NOTE | 2022-10-09 11:28 | Progress Note ---
SHELLIE ARANA I 10/09/22 1127: Subjective Date Seen by a Provider: Oct 09, 2022 Time Seen by a Provider: 09:30 Subjective/Events-last exam Dorina Yang Is a 52 year old female who was admitted 10/05 for generalized weakness and altered mental status. She is doing better today and has ambulated with assistance and seems to be back at her baseline according to her father, who is present in the room. Discussed acute rehab care inpatient in the hospital with her father and he expressed his preference to take her home to care for her, as she is close to baseline. 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 Plans to recheck UA today. Objective Exam Last Set of Vital Signs Vital Signs Date Time Temp Pulse Resp B/P (MAP) Pulse Ox O2 Delivery O2 Flow Rate FiO2 10/09/22 11:17 36.5 82 18 134/60 (84) 93 Room Air Capillary Refill : I&O Intake and Output 10/09/22 00:00 Intake Total 900 ml Balance 900 ml Intake Oral 900 ml # Voids 6 General: Alert, Oriented X3 HEENT: Atraumatic Neck: Supple Lungs: Clear to Auscultation Abdomen: Normal Bowel Sounds, Soft, No Tenderness, No Hepatosplenomegaly, No Masses Neuro: Other (back at baseline per father) Results Lab Laboratory Tests 10/09/22 06:24: White Blood Count 6.1, Red Blood Count 4.38, Hemoglobin 13.1, Hematocrit 40, Mean Corpuscular Volume 91, Mean Corpuscular Hemoglobin 30, Mean Corpuscular Hemoglobin Concent 33, Red Cell Distribution Width 13.9, Platelet Count 246, Mean Platelet Volume 10.7, Immature Granulocyte % (Auto) 0, Neutrophils (%) (A uto) 39L, Lymphocytes (%) (Auto) 46H, Monocytes (%) (Auto) 12, Eosinophils (%) (Auto) 3, Basophils (%) (Auto) 1, Neutrophils # (Auto) 2.4, Lymphocytes # (Auto) 2.8, Monocytes # (Auto) 0.7, Eosinophils # (Auto) 0.2, Basophils # (Auto) 0.0, Immature Granulocyte # (Auto) 0.0, Sodium Level 140, Potassium Level 3.2L, Chloride Level 109H, Carbon Dioxide Level 23, Anion Gap 8, Blood Urea Nitrogen 5L, Creatinine 0.54L, Estimat Glomerular Filtration Rate 112, BUN/Creatinine Ratio 9, Glucose Level 81, Calcium Level 8.6, Corrected Calcium 9.6, Magnesium Level 1.8, Total Bilirubin 0.4, Aspartate Amino Transf (AST/SGOT) 29, Alanine Aminotransferase (ALT/SGPT) 24, Alkaline Phosphatase 99, Total Protein 5.7L, Albumin 2.8L 10/09/22 10:30: Urine Color YELLOW, Urine Clarity CLEAR, Urine pH 7.0, Urine Specific [place] 1.020, Urine Protein NEGATIVE, Urine Glucose (UA) NEGATIVE, Urine Ketones TRACEH , Urine Nitrite NEGATIVE, Urine Bilirubin NEGATIVE, Urine Urobilinogen 0.2, Urine Leukocyte Esterase NEGATIVE, Urine RBC (Auto) 1+H, Urine RBC 5-10H, Urine WBC 0-2, Urine Squamous Epithelial Cells 5-10, Urine Crystals PRESENTH, Urine Amorphous Sediment FEW JESUS URATESH, Urine Bacteria TRACE, Urine Casts NONE, Urine Mucus NEGATIVE, Urine Culture Indicated NO Assessment/Plan Assessment/Plan Assess & Plan/Chief Complaint Generalized weakness vs acute encephalopathy - 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 - MRI showing: possible small vessel ischemic damage consistent with age - Working with PT - Discussed acute rehab care, but declined Debility SARAH MALIK DO 10/10/22 0522: Supervisory-Addendum Brief Verification & Attestation Participated in pt care: history, MDM, physical Personally performed: exam, history, MDM, supervision of care Care discussed with: Medical Student Procedures: n/a Results interpretation: Verified all documentation Verification and Attestation of Medical Student E/M Service A medical student performed and documented this service in my presence. I reviewed and verified all information documented by the medical student and made modifications to such information, when appropriate. I personally performed the physical exam and medical decision making. Sarah Malik, Oct 10, 2022,05:22 SHELLIE ARANA I Oct 09, 2022 11:27 SARAH MALIK DO Oct 10, 2022 05:22
[2022-10-09 16:04] VITALS: BP 125/79
[2022-10-09] MEDS: ENOXAPARIN 40 MG/0.4 ML (LOVENOX) SYR SC SCH (16:14)
[2022-10-09 19:55] VITALS: BP 138/86
[2022-10-09 23:49] VITALS: BP 131/85
[2022-10-10 04:06] VITALS: BP 115/80
[2022-10-10 06:24] LABS: BASOPHILS # (AUTO) 0.1 10^3/uL (0.0-0.1); BASOPHILS % (AUTO) 1 % (0-10); EOSINOPHILS # (AUTO) 0.2 10^3/uL (0.0-0.3); EOSINOPHILS % (AUTO) 3 % (0-10); HEMATOCRIT 40 % (35-52); HEMOGLOBIN 13.1 g/dL (11.5-16.0); LYMPHOCYTES # (AUTO) 2.6 10^3/uL (1.0-4.0); LYMPHOCYTES % (AUTO) 36 % (12-44); MEAN CORPUSCULAR HEMOGLOBIN 30 pg (25-34); MEAN CORPUSCULAR HGB CONC 33 g/dL (32-36); MEAN CORPUSCULAR VOLUME 90 fL (80-99); MEAN PLATELET VOLUME 10.8 fL (9.0-12.2); MONOCYTES # (AUTO) 0.7 10^3/uL (0.0-1.0); MONOCYTES % (AUTO) 9 % (0-12); NEUTROPHILS # (AUTO) 3.6 10^3/uL (1.8-7.8); NEUTROPHILS % (AUTO) 51 % (42-75); PLATELET COUNT 247 10^3/uL (130-400); WHITE BLOOD COUNT 7.1 10^3/uL (4.3-11.0)
[2022-10-10] MEDS: KCL 20 MEQ TAB (K-DUR) PO SCH (06:30)
[2022-10-10 06:41] LABS: ALBUMIN 2.9 GM/DL (3.2-4.5); BILIRUBIN,TOTAL 0.4 MG/DL (0.1-1.0); CALCIUM 8.8 MG/DL (8.5-10.1); CREATININE SERUM 0.51 MG/DL (0.60-1.30); TOTAL PROTEIN 5.9 GM/DL (6.4-8.2)
[2022-10-10 07:19] VITALS: BP 100/76
[2022-10-10] MEDS: meTOprolol TARTRATE 25 MG (LOPRESSOR) TABLET PO SCH ×2 (08:19→20:21)
--- NOTE | 2022-10-10 09:41 | D/C HH Face to Face Order ---
D/C Face to Face Orders Reconcile Patient Problems Problems Reviewed?: Yes Instructions for Patient Via [facility], Patient Instructions/FollowUp: PCP 1 week Physician to follow Patient: [facility] Discharge Diet for Home: No Restrictions Patient Problems: Debility Patient Data-Allergies,Ht & Wt Patient Allergies: Coded Allergies: No Known Drug Allergies (Unverified , 04/14/12) Height (Feet): 5 Height (Inches): 3 Weight (Pounds): 155 Home Health Need/Face to Face Date of Face to Face: Oct 10, 2022 Clinical Findings: Generalized weakness and fatigue, Instability, Muscle weakness, Unsteady gait I have seen Pt [id number]: Yes Discharged To: Home Diagnosis/Conditions: Debility Patient is Homebound due to: CognItive deficits, Aleksandar fall risk due to instabilty, Muscle weakness Homebound Status Due to the above stated illness, injury or surgical procedure (medical condition or diagnosis) and associated clinical findings, the patient is homebound because of his/her inability to leave home except with aid of a supportive device and/or person AND leaving the home requires a considerable and taxing effort or is medically contraindicated. Pt req the following assistanc: [facility] Nursing Orders Home Health Services Order: Nursing Services, Sleeve Setter Lockstitch-Evaluate & Treat, Physical Therapy-Evaluate & Treat Certify Stmt I certify that this patient is under my care and that I, a nurse practitioner or a physician; a assistant finance manager working with me, had a face to face encounter that - meets the physician face to face encounter requirements with this patient as dated. TRIXIE MALIK DO Oct 10, 2022 09:41
--- NOTE | 2022-10-10 09:44 | Discharge Summary ---
Diagnosis/Chief Complaint Date of Admission Oct 05, 2022 at 16:25 Date of Discharge Discharge Date: Oct 10, 2022 Discharge Summary Discharge Physical Examination Allergies: Coded Allergies: No Known Drug Allergies (Unverified , 04/14/12) Vitals & I&Os Vital Signs Date Time Temp Pulse Resp B/P (MAP) Pulse Ox O2 Delivery O2 Flow Rate FiO2 10/11/22 03:51 37.0 91 16 126/73 (90) 97 Room Air Hospital Course Labs (last 24 hrs) Laboratory Tests 10/05/22 16:38: White Blood Count 7.1, Red Blood Count 4.84, Hemoglobin 14.5, Hematocrit 44, Mean Corpuscular Volume 91, Mean Corpuscular Hemoglobin 30, Mean Corpuscular Hemoglobin Concent 33, Red Cell Distribution Width 13.7, Platelet Count 282, Mean Platelet Volume 11.0, Immature Granulocyte % (Auto) 0, Neutrophils (%) (Auto) 53, Lymphocytes (%) (Auto) 37, Monocytes (%) (Auto) 8, Eosinophils (%) (Auto) 2, Basophils (%) (Auto) 0, Neutrophils # (Auto) 3.8, Lymphocytes # (Auto) 2.6, Monocytes # (Auto) 0.6, Eosinophils # (Auto) 0.2, Basophils # (Auto) 0.0, Immature Granulocyte # (Auto) 0.0, Vitamin B1 Level 76.6, Folate 5.1, Procalcitonin 0.02, Thyroid Stimulating Hormone (TSH) 1.50 10/06/22 05:20: Sodium Level 137, Potassium Level 3.6, Chloride Level 108H, Carbon Dioxide Level 22, Anion Gap 7, Blood Urea Nitrogen 9, Creatinine 0.57L, Estimat Glomerular Filtration Rate 111, BUN/Creatinine Ratio 16, Glucose Level 86, Calcium Level 8.2L, Corrected Calcium 9.2, Total Bilirubin 0.4, Aspartate Amino Transf (AST/SGOT) 16, Alanine Aminotransferase (ALT/SGPT) 18, Alkaline Phosphatase 93, Total Protein 5.3L, Albumin 2.7L 10/07/22 06:15: White Blood Count 6.4, Red Blood Count 4.58, Hemoglobin 13.6, Hematocrit 41, Mean Corpuscular Volume 89, Mean Corpuscular Hemoglobin 30, Mean Corpuscular Hemoglobin Concent 33, Red Cell Distribution Width 13.4, Platelet Count 248, Mean Platelet Volume 11.3, Immature Granulocyte % (Auto) 0, Neutrophils (%) (Auto) 71, Lymphocytes (%) (Auto) 23, Monocytes (%) (Auto) 4, Eosinophils (%) (Auto) 1, Basophils (%) (Auto) 1, Neutrophils # (Auto) 4.5, Lymphocytes # (Auto) 1.5, Monocytes # (Auto) 0.3, Eosinophils # (Auto) 0.1, Basophils # (Auto) 0.0, Immature Granulocyte # (Auto) 0.0, Sodium Level 134L, Potassium Level 3.4L, Chloride Level 104, Carbon Dioxide Level 20L, Anion Gap 10, Blood Urea Nitrogen 4L, Creatinine 0.50L, Estimat Glomerular Filtration Rate 114, BUN/Creatinine Ratio 8, Glucose Level 96, Calcium Level 8.9, Corrected Calcium 9.6, Total Bilirubin 0.4, Aspartate Amino Transf (AST/SGOT) 17, Alanine Aminotransferase (A LT/SGPT) 20, Alkaline Phosphatase 108, Total Protein 6.4, Albumin 3.1L 10/08/22 05:58: White Blood Count 5.6, Red Blood Count 4.55, Hemoglobin 13.5, Hematocrit 41, Mean Corpuscular Volume 89, Mean Corpuscular Hemoglobin 30, Mean Corpuscular Hemoglobin Concent 33, Red Cell Distribution Width 13.4, Platelet Count 259, Mean Platelet Volume 11.7, Immature Granulocyte % (Auto) 0, Neutrophils (%) (Auto) 63, Lymphocytes (%) (Auto) 27, Monocytes (%) (Auto) 8, Eosinophils (%) (Auto) 1, Basophils (%) (Auto) 1, Neutrophils # (Auto) 3.5, Lymphocytes # (Auto) 1.5, Monocytes # (Auto) 0.5, Eosinophils # (Auto) 0.1, Basophils # (Auto) 0.0, Immature Granulocyte # (Auto) 0.0, Sodium Level 137, Potassium Level 3.1L, Chloride Level 104, Carbon Dioxide Level 21, Anion Gap 12, Blood Urea Nitrogen 3L, Creatinine 0.52L, Estimat Glomerular Filtration Rate 113, BUN/Creatinine Ratio 6, Glucose Level 72, Calcium Level 8.8, Corrected Calcium 9.5, Total Bi lirubin 0.5, Aspartate Amino Transf (AST/SGOT) 21, Alanine Aminotransferase (ALT/SGPT) 21, Alkaline Phosphatase 115, Total Protein 6.3L, Albumin 3.1L 10/09/22 06:24: White Blood Count 6.1, Red Blood Count 4.38, Hemoglobin 13.1, Hematocrit 40, Mean Corpuscular Volume 91, Mean Corpuscular Hemoglobin 30, Mean Corpuscular Hemoglobin Concent 33, Red Cell Distribution Width 13.9, Platelet Count 246, Mean Platelet Volume 10.7, Immature Granulocyte % (Auto) 0, Neutrophils (%) (Auto) 39L, Lymphocytes (%) (Auto) 46H, Monocytes (%) (Auto) 12, Eosinophils (%) (Auto) 3, Basophils (%) (Auto) 1, Neutrophils # (Auto) 2.4, Lymphocytes # (Auto) 2.8, Monocytes # (Auto) 0.7, Eosinophils # (Auto) 0.2, Basophils # (Auto) 0.0, Immature Granulocyte # (Auto) 0.0, Sodium Level 140, Potassium Level 3.2L, Chloride Level 109H, Carbon Dioxide Level 23, Anion Gap 8, Blood Urea Nitrogen 5L, Creatinine 0.54L, Estimat Glomerular Filtration Rate 112, BUN/Creatinine Ratio 9, Glucose Level 81, Calcium Level 8.6, Corrected Calcium 9.6, Magnesium Level 1.8, Total Bilirubin 0.4, Aspartate Amino Transf (AST/SGOT) 29, Alanine Aminotransferase (ALT/SGPT) 24, Alkaline Phosphatase 99, Total Protein 5.7L, Albumin 2.8L 10/09/22 10:30: Urine Color YELLOW, Urine Clarity CLEAR, Urine pH 7.0, Urine Specific [place] 1.020, Urine Protein NEGATIVE, Urine Glucose (UA) NEGATIVE, Urine Ketones TRACEH , Urine Nitrite NEGATIVE, Urine Bilirubin NEGATIVE, Urine Urobilinogen 0.2, Urine Leukocyte Esterase NEGATIVE, Urine RBC (Auto) 1+H, Urine RBC 5-10H, Urine WBC 0-2, Urine Squamous Epithelial Cells 5-10, Urine Crystals PRESENTH, Urine Amorphous Sediment FEW JESUS URATESH, Urine Bacteria TRACE, Urine Casts NONE, Urine Mucus NEGATIVE, Urine Culture Indicated NO 10/10/22 06:10: White Blood Count 7.1, Red Blood Count 4.43, Hemoglobin 13.1, Hematocrit 40, Mean Corpuscular Volume 90, Mean Corpuscular Hemoglobin 30, Mean Corpuscular Hemoglobin Concent 33, Red Cell Distribution Width 14.0, Platelet Count 247, Mean Platelet Volume 10.8, Immature Granulocyte % (Auto) 0, Neutrophils (%) (Auto) 51, Lymphocytes (%) (Auto) 36, Monocytes (%) (Auto) 9, Eosinophils (%) (Auto) 3, Basophils (%) (Auto) 1, Neutrophils # (Auto) 3.6, Lymphocytes # (Auto) 2.6, Monocytes # (Auto) 0.7, Eosinophils # (Auto) 0.2, Basophils # (Auto) 0.1, Immature Granulocyte # (Auto) 0.0, Sodium Level 136, Potassium Level 4.0, Chloride Level 105, Carbon Dioxide Level 23, Anion Gap 8, Blood Urea Nitrogen 5L , Creatinine 0.51L, Estimat Glomerular Filtration Rate 114, BUN/Creatinine Ratio 10, Glucose Level 77, Calcium Level 8.8, Corrected Calcium 9.7, Total Bilirubin 0.4, Aspartate Amino Transf (AST/SGOT) 28, Alanine Aminotransferase (ALT/SGPT) 27, Alkaline Phosphatase 103, Total Protein 5.9L, Albumin 2.9L 10/11/22 05:11: Pending Labs Laboratory Tests 10/05/22 16:38: White Blood Count 7.1, Red Blood Count 4.84, Hemoglobin 14.5, Hematocrit 44, Mean Corpuscular Volume 91, Mean Corpuscular Hemoglobin 30, Mean Corpuscular Hemoglobin Concent 33, Red Cell Distribution Width 13.7, Platelet Count 282, Mean Platelet Volume 11.0, Immature Granulocyte % (Auto) 0, Neutrophils (%) (Auto) 53, Lymphocytes (%) (Auto) 37, Monocytes (%) (Auto) 8, Eosinophils (%) (Auto) 2, Basophils (%) (Auto) 0, Neutrophils # (Auto) 3.8, Lymphocytes # (Auto) 2.6, Monocytes # (Auto) 0.6, Eosinophils # (Auto) 0.2, Basophils # (Auto) 0.0, Immature Granulocyte # (Auto) 0.0, Vitamin B1 Level 76.6, Folate 5.1, Procalcitonin 0.02, Thyroid Stimulating Hormone (TSH) 1.50 10/06/22 05:20: Sodium Level 137, Potassium Level 3.6, Chloride Level 108, Carbon Dioxide Level 22, Anion Gap 7, Blood Urea Nitrogen 9, Creatinine 0.57, Estimat Glomerular Filtration Rate 111, BUN/Creatinine Ratio 16, Glucose Level 86, Calcium Level 8.2, Corrected Calcium 9.2, Total Bilirubin 0.4, Aspartate Amino Transf (AST/SGOT) 16, Alanine Aminotransferase (ALT/SGPT) 18, Alkaline Phosphatase 93, Total Protein 5.3, Albumin 2.7 10/07/22 06:15: White Blood Count 6.4, Red Blood Count 4.58, Hemoglobin 13.6, Hematocrit 41, Mean Corpuscular Volume 89, Mean Corpuscular Hemoglobin 30, Mean Corpuscular Hemoglobin Concent 33, Red Cell Distribution Width 13.4, Platelet Count 248, Mean Platelet Volume 11.3, Immature Granulocyte % (Auto) 0, Neutrophils (%) (Auto) 71, Lymphocytes (%) (Auto) 23, Monocytes (%) (Auto) 4, Eosinophils (%) (Auto) 1, Basophils (%) (Auto) 1, Neutrophils # (Auto) 4.5, Lymphocytes # (Auto) 1.5, Monocytes # (Auto) 0.3, Eosinophils # (Auto) 0.1, Basophils # (Auto) 0.0, Immature Granulocyte # (Auto) 0.0, Sodium Level 134, Potassium Level 3.4, Chloride Level 104, Carbon Dioxide Level 20, Anion Gap 10, Blood Urea Nitrogen 4, Creatinine 0.50, Estimat Glomerular Filtration Rate 114, BUN/Creatinine Ratio 8, Glucose Level 96, Calcium Level 8.9, Corrected Calcium 9.6, Total Bilirubin 0.4, Aspartate Amino Transf (AST/SGOT) 17, Alanine Aminotransferase (ALT/SGPT) 20, Alkaline Phosphatase 108, Total Protein 6.4, Albumin 3.1 10/08/22 05:58: White Blood Count 5.6, Red Blood Count 4.55, Hemoglobin 13.5, Hematocrit 41, Mean Corpuscular Volume 89, Mean Corpuscular Hemoglobin 30, Mean Corpuscular Hemoglobin Concent 33, Red Cell Distribution Width 13.4, Platelet Count 259, Mean Platelet Volume 11.7, Immature Granulocyte % (Auto) 0, Neutrophils (%) (Auto) 63, Lymphocytes (%) (Auto) 27, Monocytes (%) (Auto) 8, Eosinophils (%) (Auto) 1, Basophils (%) (Auto) 1, Neutrophils # (Auto) 3.5, Lymphocytes # (Auto) 1.5, Monocytes # (Auto) 0.5, Eosinophils # (Auto) 0.1, Basophils # (Auto) 0.0, Immature Granulocyte # (Auto) 0.0, Sodium Level 137, Potassium Level 3.1, Chloride Level 104, Carbon Dioxide Level 21, Anion Gap 12, Blood Urea Nitrogen 3, Creatinine 0.52, Estimat Glomerular Filtration Rate 113, BUN/Creatinine Ratio 6, Glucose Level 72, Calcium Level 8.8, Corrected Calcium 9.5, Total Bilirubin 0.5, Aspartate Amino Transf (AST/SGOT) 21, Alanine Aminotransferase (ALT/SGPT) 21, Alkaline Phosphatase 115, Total Protein 6.3, Albumin 3.1 10/09/22 06:24: White Blood Count 6.1, Red Blood Count 4.38, Hemoglobin 13.1, Hematocrit 40, Mean Corpuscular Volume 91, Mean Corpuscular Hemoglobin 30, Mean Corpuscular Hemoglobin Concent 33, Red Cell Distribution Width 13.9, Platelet Count 246, Mean Platelet Volume 10.7, Immature Granulocyte % (Auto) 0, Neutrophils (%) (Auto) 39, Lymphocytes (%) (Auto) 46, Monocytes (%) (Auto) 12, Eosinophils (%) (Auto) 3, Basophils (%) (Auto) 1, Neutrophils # (Auto) 2.4, Lymphocytes # (Auto) 2.8, Monocytes # (Auto) 0.7, Eosinophils # (Auto) 0.2, Basophils # (Auto) 0.0, Immature Granulocyte # (Auto) 0.0, Sodium Level 140, Potassium Level 3.2, Chloride Level 109, Carbon Dioxide Level 23, Anion Gap 8, Blood Urea Nitrogen 5, Creatinine 0.54, Estimat Glomerular Filtration Rate 112, BUN/Creatinine Ratio 9, Glucose Level 81, Calcium Level 8.6, Corrected Calcium 9.6, Magnesium Level 1.8, Total Bilirubin 0.4, Aspartate Amino Transf (AST/SGOT) 29, Alanine Aminotransferase (ALT/SGPT) 24, Alkaline Phosphatase 99, Total Protein 5.7, Albumin 2.8 10/09/22 10:30: Urine Color YELLOW, Urine Clarity CLEAR, Urine pH 7.0, Urine Specific [place] 1.020, Urine Protein NEGATIVE, Urine Glucose (UA) NEGATIVE, Urine Ketones TRACE, Urine Nitrite NEGATIVE, Urine Bilirubin NEGATIVE, Urine Urobilinogen 0.2, Urine Leukocyte Esterase NEGATIVE, Urine RBC (Auto) 1+, Urine RBC 5-10, Urine WBC 0-2, Urine Squamous Epithelial Cells 5-10, Urine Crystals PRESENT, Urine Amorphous Sediment FEW JESUS URATES, Urine Bacteria TRACE, Urine Casts NONE, Urine Mucus NEGATIVE, Urine Culture Indicated NO 10/10/22 06:10: White Blood Count 7.1, Red Blood Count 4.43, Hemoglobin 13.1, Hematocrit 40, Mean Corpuscular Volume 90, Mean Corpuscular Hemoglobin 30, Mean Corpuscular Hemoglobin Concent 33, Red Cell Distribution Width 14.0, Platelet Count 247, Mean Platelet Volume 10.8, Immature Granulocyte % (Auto) 0, Neutrophils (%) (Auto) 51, Lymphocytes (%) (Auto) 36, Monocytes (%) (Auto) 9, Eosinophils (%) (Auto) 3, Basophils (%) (Auto) 1, Neutrophils # (Auto) 3.6, Lymphocytes # (Auto) 2.6, Monocytes # (Auto) 0.7, Eosinophils # (Auto) 0.2, Basophils # (Auto) 0.1, Immature Granulocyte # (Auto) 0.0, Sodium Level 136, Potassium Level 4.0, Chloride Level 105, Carbon Dioxide Level 23, Anion Gap 8, Blood Urea Nitrogen 5, Creatinine 0.51, Estimat Glomerular Filtration Rate 114, BUN/Creatinine Ratio 10, Glucose Level 77, Calcium Level 8.8, Corrected Calcium 9.7, Total Bilirubin 0.4, Aspartate Amino Transf (AST/SGOT) 28, Alanine Aminotransferase (ALT/SGPT) 27, Alkaline Phosphatase 103, Total Protein 5.9, Albumin 2.9 10/11/22 05:11: White Blood Count [Pending], Red Blood Count [Pending], Hemoglobin [Pending], Hematocrit [Pending], Mean Corpuscular Volume [Pending], Mean Corpuscular Hemoglobin [Pending], Mean Corpuscular Hemoglobin Concent [Pending], Red Cell Distribution Width [Pending], Platelet Count [Pending], Mean Platelet Volume [Pending], Neutrophils (%) (Auto) [Pending], Lymphocytes (%) (Auto) [Pending], Monocytes (%) (Auto) [Pending], Eosinophils (%) (Auto) [Pending], Basophils (%) (Auto) [Pending], Neutrophils # (Auto) [Pending], Lymphocytes # (Auto) [Pending], Monocytes # (Auto) [Pending], Eosinophils # (Auto) [Pending], Basophils # (Auto) [Pending], Sodium Level [Pending], Potassium Level [Pending], Chloride Level [Pending], Carbon Dioxide Level [Pending], Anion Gap [Pending], Blood Urea Nitrogen [Pending], Creatinine [Pending], BUN/Creatinine Ratio [Pending], Glucose Level [Pending], Calcium Level [Pending], Corrected Calcium [Pending], Total Bilirubin [Pending], Aspartate Amino Transf (AST/SGOT) [Pending], Alanine Aminotransferase (ALT/SGPT) [Pending], Alkaline Phosphatase [Pending], Total Protein [Pending], Albumin [Pending] Discharge Home Medications: Active Scripts Active Reported Zyrtec (Cetirizine HCl) 10 Mg Tablet 10 Mg PO DAILY Vitamin D3 (Cholecalciferol (Vitamin D3)) 125 Mcg (5000 Unit) Tablet 125 Mcg PO DAILY Instructions to patient/family Please see electronic discharge instructions given to patient. TRIXIE MALIK DO Oct 10, 2022 09:44
--- NOTE | 2022-10-10 10:18 | Physical Therapy Daily Note ---
PT Daily Note-Current Subjective Non verbal. Pain Section J - Health Conditions 1. Rarely or not at all 2. Occasionally 3. Frequently 4. Almost constantly 8. Unable to answer Pain Effect on Sleep: 8 Pain Interference with Therapy: 8 Pain Interference w/Day-to-Day: 8 Mental Status Patient Orientation: Non-Verbal/Aphasic Transfers SCALE: Activities may be completed with or without assistive devices. 4-Alfqxaicfb-jvcaipj completes the activity by him/herself with no assistance from a helper. 5-Set-up or Clean-up Assistance-helper sets up or cleans up; patient completes activity. [place] assists only prior to or following the activity. 4-Supervision or Touching Assistance-helper provides verbal cues and/or touching/steadying and/or contact guard assistance as patient completes activity. Assistance may be provided throughout the activity or intermittently. 3-Partial/Moderate Assistance-helper does LESS THAN HALF the effort. [place] lifts, holds or supports trunk or limbs, but provides less than half the effort. 2-Substantial/Maximal Assistance-helper does MORE THAN HALF the effort. [place] lifts or holds trunk or limbs and provides more than half the effort. 9-Evpcvxsiy-dgoasv does ALL the effort. Patient does none of the effort to complete the activity. Or, the assistance of 2 or more helpers is required for the patient to complete the activity. If activity was not attempted, code reason: 7-Patient Refused. 9-Not Applicable-not attempted and the patient did not perform the activity before the current illness, exacerbation or injury. 10-Not Attempted due to Environmental Limitations-(lack of equipment, weather restraints, etc.). 88-Not Attempted due to Medical Conditions or Safety Concerns. Sit to Lying (QC): 4 Lying to Sitting/Side of Bed(Q: 4 Sit to Stand (QC): 4 Gait Training Distance: 150' x 2 Walk 10 feet (QC): 4 Walk 50 ft with 2 Turns(QC): 4 Walk 150 ft (QC): 4 Gait Assistive Device: None TELEPHONE SALES AGENT Assessment Patient returned to bed with bed alarm activated for patient's safety. Patient tolerated treatment. PT Group Home Goals Tax Attorney Goals PT Tax Attorney Goals Time Frame: Oct 14, 2022 Roll Left & Right (QC): 4 Sit to Lying (QC): 4 Lying-Sitting on Side/Bed(QC): 4 Sit to Stand (QC): 4 Chair/Lbm-ph-Uxegz Xfer(QC): 4 Toilet Transfer (QC): 4 Walk 10 feet (QC): 4 Walk 50ft with 2 Turns (QC): 4 PT Plan Treatment/Plan Treatment Plan: Continue Plan of Care Treatment Plan: Bed Mobility, Education, Functional Activity Juli, Functional Strength, Gait, Safety, Therapeutic Exercise, Transfers Treatment Duration: Oct 14, 2022 Frequency: 5 times per week Estimated Hrs Per Day: .25 hour per day Patient and/or Family Agrees t: Yes Time Time In: 920 Time Out: 930 DATE: Oct 10, 2022 Total Billed Treatment Time: 10 Total Billed Treatment 1 visit FA 10 min TERRIE BALL PT Oct 10, 2022 10:18
--- NOTE | 2022-10-10 10:33 | Occupational Ther Daily Note ---
OT Current Status-Daily Note Subjective Laying in bed watching tv w/ father present Mental Status/Objective Patient Orientation: Person, Non-Verbal/Aphasic ADL-Treatment Shampoo shower cap and detangler w/ comb. Declines other ADLS, OT attempt to transfer patient out of bed unsuccessful. Father reports patient ambulated w/ PT earlier this morning Therapy Code Descriptions/Definitions Functional [place] Measure: 0=Not Assessed/NA 4=Minimal Assistance 1=Total Assistance 5=Supervision or Setup 2=Maximal Assistance 6=Modified [place] 3=Moderate Assistance 7=Complete IndependenceSCALE: Activities may be completed with or without assistive devices. 6-Xavlxuoriu-ajbqpfe completes the activity by him/herself with no assistance from a helper. 5-Set-up or Clean-up Assistance-helper sets up or cleans up; patient completes activity. [place] assists only prior to or following the activity. 4-Supervision or Touching Assistance-helper provides verbal cues and/or touching/steadying and/or contact guard assistance as patient completes activity. Assistance may be provided throughout the activity or intermittently. 3-Partial/Moderate Assistance-helper does LESS THAN HALF the effort. [place] lifts, holds or supports trunk or limbs, but provides less than half the effort. 2-Substantial/Maximal Assistance-helper does MORE THAN HALF the effort. [place] lifts or holds trunk or limbs and provides more than half the effort. 0-Csgwebdcu-axhjlt does ALL the effort. Patient does none of the effort to complete the activity. Or, the assistance of 2 or more helpers is required for the patient to complete the activity. If activity was not attempted, code reason: 7-Patient Refused. 9-Not Applicable-not attempted and the patient did not perform the activity before the current illness, exacerbation or injury. 10-Not Attempted due to Environmental Limitations-(lack of equipment, weather restraints, etc.). 88-Not Attempted due to Medical Conditions or Safety Concerns. Shower/Bathe Self (QC): 2 (Hair only) OT requested full body garments for dressing if patient not home today or tomorrow, patient with gown and dirty t shirt, slipper socks Education OT Patient Education: Home exercise program, Instructions to caregiver, Modified ADL techniques, Progress toward Goal/Update tx plan, Purpose of tx/functional activities, Reviewed precautions, Rehab process, Safety issues Teaching Recipient: Patient, Family Teaching Methods: Demonstration, Discussion Response to Teaching: Verbalize Understanding, Return Demonstration Patient father reports that patient mother has had a fall at home resulting in a knee injury and is requiring additional assistance OT Hydraulic Rock Drill Operator Goals Halfway Goals Time Frame: Oct 14, 2022 Eating (QC): 5 Oral Hygiene (QC): 5 Toileting Hygiene (QC): 4 Shower/Bathe Self (QC): 4 Upper Body Dressing (QC): 4 Lower Body Dressing (QC): 4 On/Off Footwear (QC): 4 Additional Goals: 1-Demonstrate ADL Tasks, 3-ImproveStrength/Juli 1=Demonstrate adherence to instructed precautions during ADL tasks. 2=Patient will verbalize/demonstrate understanding of assistive devices/modifications for ADL. 3=Patient will improve strength/tolerance for activity to enable patient to perform ADL's. OT Education/Plan Problem List/Assessment Assessment: Decreased Activ Tolerance, Decreased Safety Aware, Decreased UE Strength, Impaired Cognition, Impaired Coordination, Impaired Funct Balance, Impaired Self-Care Skills Discharge Recommendations Plan/Recommendations: Continue POC Therapy Discharge Recommendati: Home & Family Treatment Plan/Plan of Care Treatment,Training & Education: Yes Patient would benefit from OT for education, treatment and training to promote independence in ADL's, mobility, safety and/or upper extremity function for ADL's. Plan of Care: ADL Retraining, Functional Mobility, Group Exercise/Act as Ind, UE Funct Exercise/Act Treatment Duration: Oct 14, 2022 Frequency: 3 times per week (3-5 times per week) Estimated Hrs Per Day: .25 hour per day Agreement: Yes Rehab Potential: Good Patient sitting in reclined position in bed w/ clean combed hair, [place] doll at side and father in room, all needs met Time Start Time: 10:04 Stop Time: 10:35 DATE: Oct 10, 2022 Total Time Billed (hr/min): 31 Billed Treatment Time 2 ADLs CARLITA SANCHEZ OT Oct 10, 2022 10:33
--- NOTE | 2022-10-10 11:06 | Progress Note ---
SHELLIE ARANA I 10/10/22 1106: Progress Note Dorina García is a 52 year old female with a past medical history of infantile anoxic brain injury who was admitted to the hospital from 10/05-10/10 due to global weakness and decline from baseline. Prior to being admitted she became non-ambulatory. Work-up including CBC, CMP, TSH, ProCal, UA, and MRI head revealed no acute pathological events. She recovered ambulation, and was noted by her father to be back at baseline with physical and occupational therapy as well as supportive care. SARAH MALIK DO 10/11/22 0609: Supervisory-Addendum Brief Verification & Attestation Participated in pt care: history, MDM, physical Personally performed: exam, history, MDM, supervision of care Care discussed with: Medical Student Procedures: n/a Results interpretation: Verified all documentation Verification and Attestation of Medical Student E/M Service A medical student performed and documented this service in my presence. I reviewed and verified all information documented by the medical student and made modifications to such information, when appropriate. I personally performed the physical exam and medical decision making. Sarah Malik, Oct 11, 2022,06:09 SHELLIE ARANA I Oct 10, 2022 11:06 SARAH MALIK DO Oct 11, 2022 06:09
[2022-10-10 11:15] VITALS: BP 107/75
--- NOTE | 2022-10-10 11:49 | Progress Note - Hospitalist ---
Subjective HPI/CC On Admission Date Seen by Provider: Oct 10, 2022 Time Seen by Provider: 09:00 Subjective/Events-last exam Was ready for DC home on HH but received a call from PCP and stated parents can no longer take care of her at home NHP needed Objective Exam Vital Signs Vital Signs Date Time Temp Pulse Resp B/P (MAP) Pulse Ox O2 Delivery O2 Flow Rate FiO2 10/11/22 03:51 37.0 91 16 126/73 (90) 97 Room Air Capillary Refill : General Appearance: No Apparent Distress, WD/WN, Chronically ill Results/Procedures Lab Laboratory Tests 10/10/22 06:10 Patient resulted labs reviewed. Assessment/Plan Assessment and Plan Assess & Plan/Chief Complaint Await VCV TXP TRIXIE MALIK DO Oct 10, 2022 11:49
[2022-10-10 16:39] VITALS: BP 116/78
[2022-10-10] MEDS: ENOXAPARIN 40 MG/0.4 ML (LOVENOX) SYR SC SCH (17:03)
[2022-10-10 20:03] VITALS: BP 120/74
[2022-10-10 23:40] VITALS: BP 121/76
[2022-10-11 03:51] VITALS: BP 126/73
[2022-10-11 05:56] LABS: BASOPHILS % (AUTO) 0 % (0-10); EOSINOPHILS # (AUTO) 0.2 10^3/uL (0.0-0.3); EOSINOPHILS % (AUTO) 3 % (0-10); HEMATOCRIT 44 % (35-52); HEMOGLOBIN 14.3 g/dL (11.5-16.0); LYMPHOCYTES # (AUTO) 2.8 10^3/uL (1.0-4.0); LYMPHOCYTES % (AUTO) 36 % (12-44); MEAN CORPUSCULAR HEMOGLOBIN 29 pg (25-34); MEAN CORPUSCULAR HGB CONC 33 g/dL (32-36); MEAN CORPUSCULAR VOLUME 90 fL (80-99); MEAN PLATELET VOLUME 11.6 fL (9.0-12.2); MONOCYTES # (AUTO) 0.6 10^3/uL (0.0-1.0); MONOCYTES % (AUTO) 8 % (0-12); NEUTROPHILS # (AUTO) 4.1 10^3/uL (1.8-7.8); NEUTROPHILS % (AUTO) 53 % (42-75); PLATELET COUNT 263 10^3/uL (130-400); WHITE BLOOD COUNT 7.7 10^3/uL (4.3-11.0)
[2022-10-11 06:16] LABS: ALBUMIN 3.4 GM/DL (3.2-4.5); BILIRUBIN,TOTAL 0.5 MG/DL (0.1-1.0); CALCIUM 9.6 MG/DL (8.5-10.1); CREATININE SERUM 0.62 MG/DL (0.60-1.30)
[2022-10-11] MEDS: KCL 20 MEQ TAB (K-DUR) PO SCH (06:25)
[2022-10-11 07:59] VITALS: BP 117/76
[2022-10-11] MEDS: meTOprolol TARTRATE 25 MG (LOPRESSOR) TABLET PO SCH (08:41)
--- NOTE | 2022-10-11 09:30 | Occupational Ther Daily Note ---
OT Current Status-Daily Note Subjective Up in recliner eating breakfast w/ assist from nursing staff Pain Numeric Pain Scale: 0-No Pain Mental Status/Objective Patient Orientation: Person, Non-Verbal/Aphasic (NON VERBAL, follows commands, facialy expressive , prefers to hod therapist hand intemittently during session today) ADL-Treatment Full body dressing as possible DC to rehab today. Patient lifts and inserts limbs and head when commanded and garment held open for patient, leans forward and stands ready for LB garment management to be completed w/ assistance. OT requests patient to don garment and patient looks away or holds garment in lap. transfers SBA-CGA. Gentle rushing of hair performed hand over hand until patient releases grasp. Declined oral care Therapy Code Descriptions/Definitions Functional [place] Measure: 0=Not Assessed/NA 4=Minimal Assistance 1=Total Assistance 5=Supervision or Setup 2=Maximal Assistance 6=Modified [place] 3=Moderate Assistance 7=Complete IndependenceSCALE: Activities may be completed with or without assistive devices. 2-Gyqjakukez-cxzecyx completes the activity by him/herself with no assistance from a helper. 5-Set-up or Clean-up Assistance-helper sets up or cleans up; patient completes activity. [place] assists only prior to or following the activity. 4-Supervision or Touching Assistance-helper provides verbal cues and/or touching/steadying and/or contact guard assistance as patient completes activity. Assistance may be provided throughout the activity or intermittently. 3-Partial/Moderate Assistance-helper does LESS THAN HALF the effort. [place] lifts, holds or supports trunk or limbs, but provides less than half the effort. 2-Substantial/Maximal Assistance-helper does MORE THAN HALF the effort. [place] lifts or holds trunk or limbs and provides more than half the effort. 7-Vmoogudwh-dyjlfd does ALL the effort. Patient does none of the effort to com plete the activity. Or, the assistance of 2 or more helpers is required for the patient to complete the activity. If activity was not attempted, code reason: 7-Patient Refused. 9-Not Applicable-not attempted and the patient did not perform the activity before the current illness, exacerbation or injury. 10-Not Attempted due to Environmental Limitations-(lack of equipment, weather restraints, etc.). 88-Not Attempted due to Medical Conditions or Safety Concerns. Eating (QC): 4 (Patient has demonstrated ability to feed self.) Oral Hygiene (QC): 0 Upper Body Dressing (QC): 2 Lower Body Dressing (QC): 2 On/Off Footwear: 2 (Father reports patient performed socks at home by herself. OT has not observed skill performed Mod I) Toileting Hygiene (QC): 4 Toilet Transfer (QC): 5 Education OT Patient Education: Modified ADL techniques, Progress toward Goal/Update tx plan, Purpose of tx/functional activities, Reviewed precautions, Rehab process, Safety issues, Transfer techniques Teaching Recipient: Family Teaching Methods: Demonstration, Discussion Response to Teaching: Verbalize Understanding, Return Demonstration (Family seeking short rehab stay, patient requires more care than can be provided at home during this time, d/t parents needed extra assistance at home d/t caregiver injury) OT Custodial Goals Custodial Goals Time Frame: Oct 14, 2022 Eating (QC): 5 Oral Hygiene (QC): 5 Toileting Hygiene (QC): 4 Shower/Bathe Self (QC): 4 Upper Body Dressing (QC): 4 Lower Body Dressing (QC): 4 On/Off Footwear (QC): 4 Additional Goals: 1-Demonstrate ADL Tasks, 3-ImproveStrength/Juli 1=Demonstrate adherence to instructed precautions during ADL tasks. 2=Patient will verbalize/demonstrate understanding of assistive devices/modifications for ADL. 3=Patient will improve strength/tolerance for activity to enable patient to perform ADL's. OT Education/Plan Problem List/Assessment Assessment: Decreased Activ Tolerance, Decreased Safety Aware, Impaired Cognition, Impaired Coordination, Impaired Funct Balance, Impaired Self-Care Skills Discharge Recommendations Plan/Recommendations: Continue POC Therapy Discharge Recommendati: 24 Hour Supervision, Post Acute OT Treatment Plan/Plan of Care Treatment,Training & Education: Yes Patient would benefit from OT for education, treatment and training to promote independence in ADL's, mobility, safety and/or upper extremity function for ADL's. Plan of Care: ADL Retraining, Functional Mobility, Group Exercise/Act as Ind, UE Funct Exercise/Act Treatment Duration: Oct 14, 2022 Frequency: 3 times per week (3-5 times per week) Estimated Hrs Per Day: .25 hour per day Agreement: Yes Rehab Potential: Good Patient remains upright in recliner w/ activity blanket on lap, call cord in reach, father present Time Start Time: 09:08 Stop Time: 09:38 DATE: Oct 11, 2022 Total Time Billed (hr/min): 30 Billed Treatment Time 1 visit ADLs 2 30 min CARLITA SANCHEZ OT Oct 11, 2022 09:30
[2022-10-11] MEDS ORDERED: CALC-250 PO (09:31)
[2022-10-11] MEDS ORDERED: CETI10TA49 PO (09:31)
--- NOTE | 2022-10-11 09:33 | Discharge Inst-Skilled Nursing ---
Discharge Inst-Skilled NF Reconcile Patient Problems Problems Reviewed?: Yes Patient Instructions Patient Problems: Debility Intellectual disability Goal: [place] Consult/Follow Up/Orders Follow Up Appt.: PCP Belinda Oliver 1 week Skilled NF Admit to: [facility] ([facility]) I certify that [facility] services are required to be given on an inpatient basis because of the above named patient's need for usp care on a continuing basis for the conditions(s) for which he/she was receiving inpatient hospital services prior to his/her transfer to the [facility]. [facility] Facility Order: Nursing Services, Grader Operator-Evaluate & Treat, Physical Therapy-Evaluate & Treat, Speech Language-Evaluate & Treat Oxygen Delivery Method: Room Air Discharge Diet: No Restrictions Daily Activity as Tolerated: Yes Resuscitation Status: Full Code New & Resume Previous Orders Continued Medications: Cetirizine HCl (Zyrtec) 10 Mg Tablet 10 MG PO DAILY, #30 TAB (This prescription has been renewed) Cholecalciferol (Vitamin D3) (Vitamin D3) 125 Mcg (5000 Unit) Tablet 125 MCG PO DAILY, #30 TAB (This prescription has been renewed) Sarah Santillan Oct 11, 2022 09:31 SARAH SANTILLAN DO Oct 11, 2022 09:33
--- NOTE | 2022-10-11 09:34 | Discharge Summary ---
Diagnosis/Chief Complaint Date of Admission Oct 05, 2022 at 16:25 Date of Discharge Discharge Date: Oct 11, 2022 Discharge Diagnosis Encephalopathy Discharge Summary Discharge Physical Examination Allergies: Coded Allergies: No Known Drug Allergies (Unverified , 04/14/12) Vitals & I&Os Vital Signs Date Time Temp Pulse Resp B/P (MAP) Pulse Ox O2 Delivery O2 Flow Rate FiO2 10/11/22 14:00 36.8 88 18 120/77 94 Room Air General Appearance: Alert Respiratory: Clear to Auscultation Cardiovascular: Regular Rate Hospital Course Was the Problem List Reviewed?: Yes Dorina García is a 52 year old female with a past medical history of infantile anoxic brain injury who was admitted to the hospital from 10/05-10/10 due to global weakness and decline from baseline. Prior to being admitted she became non-ambulatory. Work-up including CBC, CMP, TSH, ProCal, UA, and MRI head revealed no acute pathological events. She recovered ambulation, and was noted by her father to be back at baseline with physical and occupational therapy as well as supportive care. Labs (last 24 hrs) Laboratory Tests 10/05/22 16:38: White Blood Count 7.1, Red Blood Count 4.84, Hemoglobin 14.5, Hematocrit 44, Mean Corpuscular Volume 91, Mean Corpuscular Hemoglobin 30, Mean Corpuscular Hemoglobin Concent 33, Red Cell Distribution Width 13.7, Platelet Count 282, Mean Platelet Volume 11.0, Immature Granulocyte % (Auto) 0, Neutrophils (%) (Auto) 53, Lymphocytes (%) (Auto) 37, Monocytes (%) (Auto) 8, Eosinophils (%) (Auto) 2, Basophils (%) (Auto) 0, Neutrophils # (Auto) 3.8, Lymphocytes # (Auto) 2.6, Monocytes # (Auto) 0.6, Eosinophils # (Auto) 0.2, Basophils # (Auto) 0.0, Immature Granulocyte # (Auto) 0.0, Vitamin B1 Level 76.6, Folate 5.1, Procalcitonin 0.02, Thyroid Stimulating Hormone (TSH) 1.50 10/06/22 05:20: Sodium Level 137, Potassium Level 3.6, Chloride Level 108H, Carbon Dioxide Level 22, Anion Gap 7, Blood Urea Nitrogen 9, Creatinine 0.57L, Estimat Glomerular Filtration Rate 111, BUN/Creatinine Ratio 16, Glucose Level 86, Calcium Level 8.2L, Corrected Calcium 9.2, Total Bilirubin 0.4, Aspartate Amino Transf (AST/SGOT) 16, Alanine Aminotransferase (ALT/SGPT) 18, Alkaline Phosphatase 93, Total Protein 5.3L, Albumin 2.7L 10/07/22 06:15: White Blood Count 6.4, Red Blood Count 4.58, Hemoglobin 13.6, Hematocrit 41, Mean Corpuscular Volume 89, Mean Corpuscular Hemoglobin 30, Mean Corpuscular Hemoglobin Concent 33, Red Cell Distribution Width 13.4, Platelet Count 248, Mean Platelet Volume 11.3, Immature Granulocyte % (Auto) 0, Neutrophils (%) (Auto) 71, Lymphocytes (%) (Auto) 23, Monocytes (%) (Auto) 4, Eosinophils (%) (Auto) 1, Basophils (%) (Auto) 1, Neutrophils # (Auto) 4.5, Lymphocytes # (Auto) 1.5, Monocytes # (Auto) 0.3, Eosinophils # (Auto) 0.1, Basophils # (Auto) 0.0, Immature Granulocyte # (Auto) 0.0, Sodium Level 134L, Potassium Level 3.4L, C hloride Level 104, Carbon Dioxide Level 20L, Anion Gap 10, Blood Urea Nitrogen 4L, Creatinine 0.50L, Estimat Glomerular Filtration Rate 114, BUN/Creatinine Ratio 8, Glucose Level 96, Calcium Level 8.9, Corrected Calcium 9.6, Total Bilirubin 0.4, Aspartate Amino Transf (AST/SGOT) 17, Alanine Aminotransferase (ALT/SGPT) 20, Alkaline Phosphatase 108, Total Protein 6.4, Albumin 3.1L 10/08/22 05:58: White Blood Count 5.6, Red Blood Count 4.55, Hemoglobin 13.5, Hematocrit 41, Mean Corpuscular Volume 89, Mean Corpuscular Hemoglobin 30, Mean Corpuscular Hemoglobin Concent 33, Red Cell Distribution Width 13.4, Platelet Count 259, Mean Platelet Volume 11.7, Immature Granulocyte % (Auto) 0, Neutrophils (%) (Auto) 63, Lymphocytes (%) (Auto) 27, Monocytes (%) (Auto) 8, Eosinophils (%) (Auto) 1, Basophils (%) (Auto) 1, Neutrophils # (Auto) 3.5, Lymphocytes # (Auto) 1.5, Monocytes # (Auto) 0.5, Eosinophils # (Auto) 0.1, Basophils # (Auto) 0.0, Immature Granulocyte # (Auto) 0.0, Sodium Level 137, Potassium Level 3.1L, Chloride Level 104, Carbon Dioxide Level 21, Anion Gap 12, Blood Urea Nitrogen 3L, Creatinine 0.52L, Estimat Glomerular Filtration Rate 113, BUN/Creatinine Ratio 6, Glucose Level 72, Calcium Level 8.8, Corrected Calcium 9.5, Total Bilirubin 0.5, Aspartate Amino Transf (AST/SGOT) 21, Alanine Aminotransferase (ALT/SGPT) 21, Alkaline Phosphatase 115, Total Protein 6.3L, Albumin 3.1L 10/09/22 06:24: White Blood Count 6.1, Red Blood Count 4.38, Hemoglobin 13.1, Hematocrit 40, Mean Corpuscular Volume 91, Mean Corpuscular Hemoglobin 30, Mean Corpuscular Hemoglobin Concent 33, Red Cell Distribution Width 13.9, Platelet Count 246, Mean Platelet Volume 10.7, Immature Granulocyte % (Auto) 0, Neutrophils (%) (Auto) 39L, Lymphocytes (%) (Auto) 46H, Monocytes (%) (Auto) 12, Eosinophils (%) (Auto) 3, Basophils (%) (Auto) 1, Neutrophils # (Auto) 2.4, Lymphocytes # (Auto) 2.8, Monocytes # (Auto) 0.7, Eosinophils # (Auto) 0.2, Basophils # (Auto) 0.0, Immature Granulocyte # (Auto) 0.0, Sodium Level 140, Potassium Level 3.2L, C hloride Level 109H, Carbon Dioxide Level 23, Anion Gap 8, Blood Urea Nitrogen 5L , Creatinine 0.54L, Estimat Glomerular Filtration Rate 112, BUN/Creatinine Ratio 9, Glucose Level 81, Calcium Level 8.6, Corrected Calcium 9.6, Magnesium Level 1.8, Total Bilirubin 0.4, Aspartate Amino Transf (AST/SGOT) 29, Alanine Aminotransferase (ALT/SGPT) 24, Alkaline Phosphatase 99, Total Protein 5.7L, Albumin 2.8L 10/09/22 10:30: Urine Color YELLOW, Urine Clarity CLEAR, Urine pH 7.0, Urine Specific [place] 1.020, Urine Protein NEGATIVE, Urine Glucose (UA) NEGATIVE, Urine Ketones TRACEH , Urine Nitrite NEGATIVE, Urine Bilirubin NEGATIVE, Urine Urobilinogen 0.2, U rine Leukocyte Esterase NEGATIVE, Urine RBC (Auto) 1+H, Urine RBC 5-10H, Urine WBC 0-2, Urine Squamous Epithelial Cells 5-10, Urine Crystals PRESENTH, Urine Amorphous Sediment FEW JESUS URATESH, Urine Bacteria TRACE, Urine Casts NONE, Urine Mucus NEGATIVE, Urine Culture Indicated NO 10/10/22 06:10: White Blood Count 7.1, Red Blood Count 4.43, Hemoglobin 13.1, Hematocrit 40, Mean Corpuscular Volume 90, Mean Corpuscular Hemoglobin 30, Mean Corpuscular Hemoglobin Concent 33, Red Cell Distribution Width 14.0, Platelet Count 247, Mean Platelet Volume 10.8, Immature Granulocyte % (Auto) 0, Neutrophils (%) (Auto) 51, Lymphocytes (%) (Auto) 36, Monocytes (%) (Auto) 9, Eosinophils (%) (Auto) 3, Basophils (%) (Auto) 1, Neutrophils # (Auto) 3.6, Lymphocytes # (Auto) 2.6, Monocytes # (Auto) 0.7, Eosinophils # (Auto) 0.2, Basophils # (Auto) 0.1, Immature Granulocyte # (Auto) 0.0, Sodium Level 136, Potassium Level 4.0, C hloride Level 105, Carbon Dioxide Level 23, Anion Gap 8, Blood Urea Nitrogen 5L, Creatinine 0.51L, Estimat Glomerular Filtration Rate 114, BUN/Creatinine Ratio 10, Glucose Level 77, Calcium Level 8.8, Corrected Calcium 9.7, Total Bilirubin 0.4, Aspartate Amino Transf (AST/SGOT) 28, Alanine Aminotransferase (ALT/SGPT) 27, Alkaline Phosphatase 103, Total Protein 5.9L, Albumin 2.9L 10/11/22 05:11: White Blood Count 7.7, Red Blood Count 4.86, Hemoglobin 14.3, Hematocrit 44, Mean Corpuscular Volume 90, Mean Corpuscular Hemoglobin 29, Mean Corpuscular Hemoglobin Concent 33, Red Cell Distribution Width 13.6, Platelet Count 263, Mean Platelet Volume 11.6, Immature Granulocyte % (Auto) 0, Neutrophils (%) (Auto) 53, Lymphocytes (%) (Auto) 36, Monocytes (%) (Auto) 8, Eosinophils (%) (Auto) 3, Basophils (%) (Auto) 0, Neutrophils # (Auto) 4.1, Lymphocytes # (Auto) 2.8, Monocytes # (Auto) 0.6, Eosinophils # (Auto) 0.2, Basophils # (Auto) 0.0, Immature Granulocyte # (Auto) 0.0, Sodium Level 137, Potassium Level 4.0, Chloride Level 103, Carbon Dioxide Level 22, Anion Gap 12, Blood Urea Nitrogen 10, Creatinine 0.62, Estimat Glomerular Filtration Rate 108, BUN/Creatinine Ratio 16, Glucose Level 84, Calcium Level 9.6, Corrected Calcium 10.1, Total Bilirubin 0.5, Aspartate Amino Transf (AST/SGOT) 23, Alanine Aminotransferase (ALT/SGPT) 24, Alkaline Phosphatase 117, Total Protein 7.0, Albumin 3.4 Pending Labs Laboratory Tests 10/05/22 16:38: White Blood Count 7.1, Red Blood Count 4.84, Hemoglobin 14.5, Hematocrit 44, Mean Corpuscular Volume 91, Mean Corpuscular Hemoglobin 30, Mean Corpuscular Hemoglobin Concent 33, Red Cell Distribution Width 13.7, Platelet Count 282, Mean Platelet Volume 11.0, Immature Granulocyte % (Auto) 0, Neutrophils (%) (Auto) 53, Lymphocytes (%) (Auto) 37, Monocytes (%) (Auto) 8, Eosinophils (%) (Auto) 2, Basophils (%) (Auto) 0, Neutrophils # (Auto) 3.8, Lymphocytes # (Auto) 2.6, Monocytes # (Auto) 0.6, Eosinophils # (Auto) 0.2, Basophils # (Auto) 0.0, Immature Granulocyte # (Auto) 0.0, Vitamin B1 Level 76.6, Folate 5.1, Procalcitonin 0.02, Thyroid Stimulating Hormone (TSH) 1.50 10/06/22 05:20: Sodium Level 137, Potassium Level 3.6, Chloride Level 108, Carbon Dioxide Level 22, Anion Gap 7, Blood Urea Nitrogen 9, Creatinine 0.57, Estimat Glomerular Filtration Rate 111, BUN/Creatinine Ratio 16, Glucose Level 86, Calcium Level 8.2, Corrected Calcium 9.2, Total Bilirubin 0.4, Aspartate Amino Transf (AST/SGOT) 16, Alanine Aminotransferase (ALT/SGPT) 18, Alkaline Phosphatase 93, Total Protein 5.3, Albumin 2.7 10/07/22 06:15: White Blood Count 6.4, Red Blood Count 4.58, Hemoglobin 13.6, Hematocrit 41, Me an Corpuscular Volume 89, Mean Corpuscular Hemoglobin 30, Mean Corpuscular Hemoglobin Concent 33, Red Cell Distribution Width 13.4, Platelet Count 248, Mean Platelet Volume 11.3, Immature Granulocyte % (Auto) 0, Neutrophils (%) (Auto) 71, Lymphocytes (%) (Auto) 23, Monocytes (%) (Auto) 4, Eosinophils (%) (Auto) 1, Basophils (%) (Auto) 1, Neutrophils # (Auto) 4.5, Lymphocytes # (Auto) 1.5, Monocytes # (Auto) 0.3, Eosinophils # (Auto) 0.1, Basophils # (Auto) 0.0, Immature Granulocyte # (Auto) 0.0, Sodium Level 134, Potassium Level 3.4, Chloride Level 104, Carbon Dioxide Level 20, Anion Gap 10, Blood Urea Nitrogen 4, Creatinine 0.50, Estimat Glomerular Filtration Rate 114, BUN/Creatinine Ratio 8, Glucose Level 96, Calcium Level 8.9, Corrected Calcium 9.6, Total Bilirubin 0.4, Aspartate Amino Transf (AST/SGOT) 17, Alanine Aminotransferase (ALT/SGPT) 20, Alkaline Phosphatase 108, Total Protein 6.4, Albumin 3.1 10/08/22 05:58: White Blood Count 5.6, Red Blood Count 4.55, Hemoglobin 13.5, Hematocrit 41, Mean Corpuscular Volume 89, Mean Corpuscular Hemoglobin 30, Mean Corpuscular Hemoglobin Concent 33, Red Cell Distribution Width 13.4, Platelet Count 259, Mean Platelet Volume 11.7, Immature Granulocyte % (Auto) 0, Neutrophils (%) (Auto) 63, Lymphocytes (%) (Auto) 27, Monocytes (%) (Auto) 8, Eosinophils (%) (Auto) 1, Basophils (%) (Auto) 1, Neutrophils # (Auto) 3.5, Lymphocytes # (Auto) 1.5, Monocytes # (Auto) 0.5, Eosinophils # (Auto) 0.1, Basophils # (Auto) 0.0, Immature Granulocyte # (Auto) 0.0, Sodium Level 137, Potassium Level 3.1, Chloride Level 104, Carbon Dioxide Level 21, Anion Gap 12, Blood Urea Nitrogen 3, Creatinine 0.52, Estimat Glomerular Filtration Rate 113, BUN/Creatinine Ratio 6, Glucose Level 72, Calcium Level 8.8, Corrected Calcium 9.5, Total Bilirubin 0.5, Aspartate Amino Transf (AST/SGOT) 21, Alanine Aminotransferase (ALT/SGPT) 21, Alkaline Phosphatase 115, Total Protein 6.3, Albumin 3.1 10/09/22 06:24: White Blood Count 6.1, Red Blood Count 4.38, Hemoglobin 13.1, Hematocrit 40, Mean Corpuscular Volume 91, Mean Corpuscular Hemoglobin 30, Mean Corpuscular Hemoglobin Concent 33, Red Cell Distribution Width 13.9, Platelet Count 246, Mean Platelet Volume 10.7, Immature Granulocyte % (Auto) 0, Neutrophils (%) (Auto) 39, Lymphocytes (%) (Auto) 46, Monocytes (%) (Auto) 12, Eosinophils (%) (Auto) 3, Basophils (%) (Auto) 1, Neutrophils # (Auto) 2.4, Lymphocytes # (Auto) 2.8, Monocytes # (Auto) 0.7, Eosinophils # (Auto) 0.2, Basophils # (Auto) 0.0, Immature Granulocyte # (Auto) 0.0, Sodium Level 140, Potassium Level 3.2, Chloride Level 109, Carbon Dioxide Level 23, Anion Gap 8, Blood Urea Nitrogen 5, Creatinine 0.54, Estimat Glomerular Filtration Rate 112, BUN/Creatinine Ratio 9, Glucose Level 81, Calcium Level 8.6, Corrected Calcium 9.6, Magnesium Level 1.8, Total Bilirubin 0.4, Aspartate Amino Transf (AST/SGOT) 29, Alanine Aminotransferase (ALT/SGPT) 24, Alkaline Phosphatase 99, Total Protein 5.7, Albumin 2.8 10/09/22 10:30: Urine Color YELLOW, Urine Clarity CLEAR, Urine pH 7.0, Urine Specific [place] 1.020, Urine Protein NEGATIVE, Urine Glucose (UA) NEGATIVE, Urine Ketones TRACE, Urine Nitrite NEGATIVE, Urine Bilirubin NEGATIVE, Urine Urobilinogen 0.2, Urine Leukocyte Esterase NEGATIVE, Urine RBC (Auto) 1+, Urine RBC 5-10, Urine WBC 0-2, Urine Squamous Epithelial Cells 5-10, Urine Crystals PRESENT, Urine Amorphous Sediment FEW JESUS URATES, Urine Bacteria TRACE, Urine Casts NONE, Urine Mucus NEGATIVE, Urine Culture Indicated NO 10/10/22 06:10: White Blood Count 7.1, Red Blood Count 4.43, Hemoglobin 13.1, Hematocrit 40, Mean Corpuscular Volume 90, Mean Corpuscular Hemoglobin 30, Mean Corpuscular Hemoglobin Concent 33, Red Cell Distribution Width 14.0, Platelet Count 247, Mean Platelet Volume 10.8, Immature Granulocyte % (Auto) 0, Neutrophils (%) (Auto) 51, Lymphocytes (%) (Auto) 36, Monocytes (%) (Auto) 9, Eosinophils (%) (Auto) 3, Basophils (%) (Auto) 1, Neutrophils # (Auto) 3.6, Lymphocytes # (Auto) 2.6, Monocytes # (Auto) 0.7, Eosinophils # (Auto) 0.2, Basophils # (Auto) 0.1, Immature Granulocyte # (Auto) 0.0, Sodium Level 136, Potassium Level 4.0, Chloride Level 105, Carbon Dioxide Level 23, Anion Gap 8, Blood Urea Nitrogen 5, Creatinine 0.51, Estimat Glomerular Filtration Rate 114, BUN/Creatinine Ratio 10, Glucose Level 77, Calcium Level 8.8, Corrected Calcium 9.7, Total Bilirubin 0.4, Aspartate Amino Transf (AST/SGOT) 28, Alanine Aminotransferase (ALT/SGPT) 27, Alkaline Phosphatase 103, Total Protein 5.9, Albumin 2.9 10/11/22 05:11: White Blood Count 7.7, Red Blood Count 4.86, Hemoglobin 14.3, Hematocrit 44, Mean Corpuscular Volume 90, Mean Corpuscular Hemoglobin 29, Mean Corpuscular Hemoglobin Concent 33, Red Cell Distribution Width 13.6, Platelet Count 263, Me an Platelet Volume 11.6, Immature Granulocyte % (Auto) 0, Neutrophils (%) (Auto) 53, Lymphocytes (%) (Auto) 36, Monocytes (%) (Auto) 8, Eosinophils (%) (Auto) 3, Basophils (%) (Auto) 0, Neutrophils # (Auto) 4.1, Lymphocytes # (Auto) 2.8, Monocytes # (Auto) 0.6, Eosinophils # (Auto) 0.2, Basophils # (Auto) 0.0, Immature Granulocyte # (Auto) 0.0, Sodium Level 137, Potassium Level 4.0, Chloride Level 103, Carbon Dioxide Level 22, Anion Gap 12, Blood Urea Nitrogen 10, Creatinine 0.62, Estimat Glomerular Filtration Rate 108, BUN/Creatinine Ratio 16, Glucose Level 84, Calcium Level 9.6, Corrected Calcium 10.1, Total Bilirubin 0.5, Aspartate Amino Transf (AST/SGOT) 23, Alanine Aminotransferase (ALT/SGPT) 24, Alkaline Phosphatase 117, Total Protein 7.0, Albumin 3.4 Discharge Home Medications: Active Scripts Active Zyrtec (Cetirizine HCl) 10 Mg Tablet 10 Mg PO DAILY Vitamin D3 (Cholecalciferol (Vitamin D3)) 125 Mcg (5000 Unit) Tablet 125 Mcg PO DAILY Instructions to patient/family Please see electronic discharge instructions given to patient. TRIXIE MALIK DO Oct 11, 2022 09:34
[2022-10-11 11:46] VITALS: BP 120/77
[2022-10-11 14:00] VITALS: BP 120/77
== END 2022-10-11 14:00 | DRG 72 ==
LOC: 4TH 15:40 → OBSVTOIN 16:25
PROVIDERS: ADMIT Family Medicine; ATTEND Internal Medicine
DX: G93.40 Encephalopathy, unspecified (principal); E87.6 Hypokalemia; R00.0 Tachycardia, unspecified
CPT/HCPCS: 36415; 70551; 80053; 81000; 82746; 83735; 84145; 84425; 84443; 85025; 93005